=== PATIENT | female | born 1955 | race Caucasian/White ===

== ENCOUNTER → 2019-03-26 10:42 | Outpatient (CLI) | payer OTHER, SELFPAY ==
[2019-03-26 11:32] LABS: Add Manual Diff / Slide Review NO; Basophils Absolute Auto 100 /uL (0-100); Basophils Percent Auto 0.7 % (0-2); Eosinophils Absolute Auto 200 /uL (0-450); Hematocrit 42.5 % (36-46); Lymphocytes Absolute Auto 2100 /uL (1100-4500); Lymphocytes Percent Auto 24.7 % (25-40); Mean Corpuscular HGB Conc 33.1 % (30-36); Mean Corpuscular Hemoglobin 26.6 PG (26-34); Mean Corpuscular Volume 80.3 fL (80-100); Monocytes Absolute Auto 700 /uL (0-900); Monocytes Percent Auto 8.1 % (3-14); Neutrophils Absolute Auto 5500 /uL (1500-7000); Neutrophils Percent Auto 64.5 % (50-75); Platelet Count 305 X10^3/uL (150-400); Red Blood Cell Count 5.29 X10^6/uL (4.0-5.2); Red Cell Distribution Width 14.6 % (11.6-14.8); White Blood Cell Count 8.5 X10^3/uL (4.5-11.0)
[2019-03-26 11:50] LABS: Alanine Aminotransferase 27 IU/L (9-52); Albumin 4.1 g/dL (3.5-5.0); Albumin Globulin Ratio 1.2 (1.0-2.8); Alkaline Phosphatase 60 U/L (38-126); Aspartate Aminotransferase 25 IU/L (14-36); Bilirubin Total 0.4 mg/dL (0.2-1.3); Blood Urea Nitrogen 12 mg/dL (7-17); Calcium 9.1 mg/dL (8.4-10.2); Carbon Dioxide 30 mmol/L (22-32); Chloride 101 mmol/L (98-107); Cholesterol 165 mg/dL (140-199); Estimated Glomerular Filt Rate > 60.0 mL/min (>60); Globulin 3.5 g/dL (1.7-4.1); Glucose 132 mg/dL (80-110); HDL Cholesterol 52 mg/dL (40-60); HEMOLYSIS < 15 (0-50); LDL Cholesterol Calculated 96 mg/dL (<100); Potassium 3.9 mmol/L (3.4-5.1); Sodium 141 mmol/L (137-145); Total Protein 7.6 g/dL (6.3-8.2); Triglycerides 85 mg/dL (35-150)
[2019-03-26 12:18] LABS: Thyroid Stimulating Hormone 1.92 uIU/mL (0.47-4.68)
[2019-03-27 12:31] LABS: Hemoglobin A1C% w Est Avg Glu 6.7 % (4.0-6.0)
== END ==
PROVIDERS: PCP Family Medicine; Visit Provider Family Medicine
DX: E03.9 Hypothyroidism, unspecified (principal); I10 Essential (primary) hypertension; Z13.220 Encounter for screening for lipoid disorders; R73.09 Other abnormal glucose
CPT/HCPCS: 36415; 80053; 80061; 83036; 84443; 85025

== ENCOUNTER → 2019-04-03 11:29 | Outpatient (CLI) | payer OTHER, SELFPAY ==
--- NOTE | 2019-04-03 11:32 | DI.RAD.S_ITS ---
PROCEDURE: XR KNEE RT 3V INDICATIONS: knee pain TECHNIQUE: 3 views of the knee were acquired. COMPARISON: [facility], , KNEE 3V RIGHT, 02/08/2016, 13:17. FINDINGS: Bones: No fractures or dislocations. No suspicious bony lesions. Moderate to severe narrowing of the medial joint space. Scattered degenerative subchondral sclerosis and spurring. Mild narrowing of the patellofemoral joint space Soft tissues: No joint effusion. No suspicious soft tissue calcifications. IMPRESSION: [id number] right knee joint degeneration, unchanged Dictated by: Jerod Ochoa M.D. on 04/03/2019 at 13:56 Approved by: Jerod Ochoa M.D. on 04/03/2019 at 13:57
--- NOTE | 2019-04-03 11:32 | DI.RAD.S_ITS ---
PROCEDURE: XR KNEE LT 3V INDICATIONS: knee pain TECHNIQUE: 3 views of the knee were acquired. COMPARISON: [facility], , KNEE 3V RIGHT, 02/08/2016, 13:17. FINDINGS: Bones: No fractures or dislocations. No suspicious bony lesions. Moderate narrowing of the medial joint space. Scattered degenerative subchondral sclerosis and spurring. Soft tissues: No joint effusion. No suspicious soft tissue calcifications. IMPRESSION: Moderate left knee joint degeneration Dictated by: Jerod Ochoa M.D. on 04/03/2019 at 13:55 Approved by: Jerod Ochoa M.D. on 04/03/2019 at 13:56
== END ==
PROVIDERS: PCP Family Medicine; Visit Provider Family Medicine
DX: M25.562 Pain in left knee (principal); M25.561 Pain in right knee; M17.0 Bilateral primary osteoarthritis of knee
CPT/HCPCS: 73562

== ENCOUNTER 2019-05-21 07:30 | Outpatient (RCR) | payer OTHER, SELFPAY ==
--- NOTE | 2019-04-30 13:55 | PT.OIE ---
Current Diagnoses Pain in right knee (04/30/19) Pain in left knee (04/30/19) Past Medical History (Last Reviewed 03/07/18 @ 09:03 by Domitila Radford LPN) Acute exacerbation of COPD with asthma (Chronic) Asthma exacerbation (Chronic) Depression (Chronic 06/03/14) Essential hypertension (Chronic) Hypothyroidism (Chronic 06/03/14) Metabolic syndrome (Chronic 06/03/14) Obesity (Chronic 06/03/14) Past Surgical History (Last Reviewed 03/07/18 @ 09:03 by Domitila Radford LPN) S/P total abdominal hysterectomy and bilateral salpingo-oophorectomy (Resolved) Status post delivery (Resolved) Status post cholecystectomy (Resolved) Status post exploratory laparotomy (Resolved) Status post tonsillectomy and adenoidectomy (Resolved) Visit Care Team Role Provider Type Weston Michelle MD Attending Provider Physician Primary Care Provider Specialty: [facility] Address: [address] [place] [address] Email: [email or web address] Physical Therapy Initial Evaluation PT-OP-A Visit Information Start: 04/30/19 07:38 Freq: Status: Active Protocol: Document 04/30/19 08:15 AMB (Rec: 04/30/19 12:01 AMB [email or web address]) Out-Patient Physical Therapy Visit Information Visit Information Visit Type Initial Evaluation Visit Start Time 08:15 Visit Stop Time 09:00 Total Visit Minutes 45 Visit Number 1 PT-OP-B Current Condition Start: 04/30/19 07:38 Freq: Status: Active Protocol: Document 04/30/19 08:15 AMB (Rec: 05/01/19 13:50 AMB [email or web address]) Current Condition History of Current Condition Onset Date 6 months Current Complaints L>R knee pain History of Current Condition Mavis was diagnosed with rheumatoid arthritis in the . She has had knee pain on and off, with a meniscectomy on the right around 2010. 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 She finds it difficult to walk around at this point, has difficulty riding her bike, doing housework, and stairs are especially painful. Treatment Goals Patient/Caregiver Goals Be able to walk, stand, exercise without knee pain Personal Factors Other Personal Factors That May Effect History of back pain with mild Therapy/Recovery L foot neuropathy per pt. COPD. PT-OP-C Subjective Start: 04/30/19 07:38 Freq: Status: Active Protocol: Document 04/30/19 08:15 AMB (Rec: 05/01/19 13:50 AMB [email or web address]) Patient Questionnaires Lower Extremity Functional Scale LEFS Score 28 LEFS Impairment 60 to 79% Impaired (Score 17- 31) OP-PT Pain Assessment Location Bilateral Knee Pain Location Details bilateral joint line Intensity 6 Scale Used Numeric (1 - 10) PT-OP-G Mobility & Gait Start: 04/30/19 07:38 Freq: Status: Active Protocol: Document 04/30/19 08:15 AMB (Rec: 05/01/19 13:50 AMB [email or web address]) OP Gait Assessment Comments Gait Comments Pt ambulates without assistive device, but with definite antalgic gait with reduced push off, and increased lateral trunk sway rather than rotation. PT-OP-J Posture/Palpation/Skin Start: 04/30/19 07:38 Freq: Status: Active Protocol: Document 04/30/19 08:15 AMB (Rec: 05/01/19 13:50 AMB [email or web address]) Palpation Assessment Location One Palpation Location L knee Palpation Findings Tenderness Palpation Details Tenderness at joint line bilaterally, tenderness over patella, mild tenderness at popliteal fosa PT-OP-K Range of Motion Start: 04/30/19 07:38 Freq: Status: Active Protocol: Document 04/30/19 08:15 AMB (Rec: 05/01/19 13:50 AMB [email or web address]) Knee Goniometric Range of Motion Knee Right Flexion Active (degrees) 100 Extension Active (degrees) 0 Left Flexion Active (degrees) 100 Extension Active (degrees) 5 PT-OP-L Special Tests Start: 04/30/19 07:38 Freq: Status: Active Protocol: Document 04/30/19 08:15 AMB (Rec: 05/01/19 13:50 AMB [email or web address]) Special Tests Knee Special Tests Patellar Grind Test Test Results positive L>R PT-OP-M Strength Start: 04/30/19 07:38 Freq: Status: Active Protocol: Document 04/30/19 08:15 AMB (Rec: 05/01/19 13:50 AMB [email or web address]) Hip Strength Hip Manual Muscle Testing Right Flexion (L2) 4+ Good+ Extension (S1) 4+ Good+ Abduction 4+ Good+ Left Flexion (L2) 4 Good Extension (S1) 4+ Good+ Abduction 4+ Good+ Knee Strength Knee Manual Muscle Testing Right Flexion (S2) 5 Normal Extension (L3) 4 Good Left Flexion (S2) 5 Normal Extension (L3) 4- Good- Comments knee extension painful PT-OP-Q Treatments Start: 04/30/19 07:38 Freq: Status: Active Protocol: Document 04/30/19 08:15 AMB (Rec: 05/01/19 13:50 AMB [email or web address]) Therapeutic Exercises Supine Exercises 1 Supine Exercise Name wall squat Reps/Minutes 5 Comments very small Standing Exercises 1 Standing Exercise Name hip flexor stretch Reps/Minutes 30x2 PT-OP-T Assessment and Plan Start: 04/30/19 07:38 Freq: Status: Active Protocol: Document 04/30/19 08:15 AMB (Rec: 05/01/19 13:50 AMB [email or web address]) Physical Therapy Assessment Rehab Potential Rehabilitation Potential Good Evaluation Complexity Number of Personal Factors/Comorbidities 1-2 Clinical Presentation at Evaluation Stable Impairments Impairments Balance,Functional Activities, Functional Mobility,Gait,Pain, ROM,Sensation,Strength Goals Three Impairment Gait Short Term Goal (STG) Mavis will ambulate over smooth surfaces for 5 minutes without an increase in baseline knee pain. STG Duration 4 weeks Group Home Goal (LTG) Mavis will ascend and descend 1 flight of stairs without an increase in her baseline knee pain. LTG Duration 6 weeks Two Impairment Strength Short Term Goal (STG) Mavis will be independent with a HEP to improve her LE strength. STG Duration 4 weeks [employer] Inside Goal (LTG) Mavis will improve her LE strength so that she can perform a partial squat without an increase in baseline knee pain. LTG Duration 6 weeks One Impairment ROM Short Term Goal (STG) Mavis will improve her knee flexion to 110 degrees bilaterally. STG Duration 4 weeks Group Home Goal (LTG) Mavis will improve her knee extension to neutral bilaterally. LTG Duration 8 weeks Assessment Summary Assessment Mavis attends physical therapy with an acute exacerbation of chronic bilateral knee pain. Her range of motion is quite limited, as is her function in regards to walking, stairs, squatting. She will benefit from PT to improve her ROM and give her pain management strategies, and improver her gait and body mechanics. Given the chronic nature of her RA, her BMI of 52.4, and COPD, improvement may be slow. Physical Therapy Plan Frequency and Duration Frequency of Treatment 2x/Week Duration of Treatment 6 weeks Plan of Care Start Date 04/30/19 Plan of Care End Date 06/11/19 Therapeutic Interventions Therapeutic Interventions Aquatic Therapy,Gait Training, Home Exercise Program,Manual Therapy,Neuromuscular Re- education,Self-Care/Home Management,Therapeutic Activities,Therapeutic Exercises Modalities Cold Pack/Ice Massage,Electric Stimulation,Hot Packs, Ultrasound Next Visit Focus/Plan Next Note Type Treatment Note Next Visit Plan Progress ROM and strengthening , likely slowly due to pt deconditioning and pain
--- NOTE | 2019-05-07 11:44 | PT.OTN ---
Current Diagnoses Pain in right knee (05/07/19) Pain in left knee (05/07/19) Physical Therapy Treatment Note PT-OP-A Visit Information Start: 04/30/19 07:38 Freq: Status: Active Protocol: Document 05/07/19 10:30 AMB (Rec: 05/07/19 11:15 AMB [id number]) Out-Patient Physical Therapy Visit Information Visit Information Visit Type Treatment Note Visit Start Time 10:30 Visit Stop Time 11:15 Total Visit Minutes 45 Visit Number 2 PT-OP-B Current Condition Start: 04/30/19 07:38 Freq: Status: Active Protocol: Document 04/30/19 08:15 AMB (Rec: 05/01/19 13:50 AMB [email or web address]) Current Condition History of Current Condition Onset Date 6 months Current Complaints L>R knee pain History of Current Condition Mavis was diagnosed with rheumatoid arthritis in the . She has had knee pain on and off, with a meniscectomy on the right around 2010. 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 She finds it difficult to walk around at this point, has difficulty riding her bike, doing housework, and stairs are especially painful. Treatment Goals Patient/Caregiver Goals Be able to walk, stand, exercise without knee pain Personal Factors Other Personal Factors That May Effect History of back pain with mild Therapy/Recovery L foot neuropathy per pt. COPD. PT-OP-C Subjective Start: 04/30/19 07:38 Freq: Status: Active Protocol: Document 05/07/19 10:30 AMB (Rec: 05/07/19 11:44 AMB [email or web address]) OP-PT Subjective Patient Comments Patient Comments Pt having difficulty and pain with HEP. PT-OP-G Mobility & Gait Start: 04/30/19 07:38 Freq: Status: Active Protocol: Document 04/30/19 08:15 AMB (Rec: 05/01/19 13:50 AMB [email or web address]) OP Gait Assessment Comments Gait Comments Pt ambulates without assistive device, but with definite antalgic gait with reduced push off, and increased lateral trunk sway rather than rotation. PT-OP-J Posture/Palpation/Skin Start: 04/30/19 07:38 Freq: Status: Active Protocol: Document 04/30/19 08:15 AMB (Rec: 05/01/19 13:50 AMB [email or web address]) Palpation Assessment Location One Palpation Location L knee Palpation Findings Tenderness Palpation Details Tenderness at joint line bilaterally, tenderness over patella, mild tenderness at popliteal fosa PT-OP-K Range of Motion Start: 04/30/19 07:38 Freq: Status: Active Protocol: Document 04/30/19 08:15 AMB (Rec: 05/01/19 13:50 AMB [email or web address]) Knee Goniometric Range of Motion Knee Right Flexion Active (degrees) 100 Extension Active (degrees) 0 Left Flexion Active (degrees) 100 Extension Active (degrees) 5 PT-OP-L Special Tests Start: 04/30/19 07:38 Freq: Status: Active Protocol: Document 04/30/19 08:15 AMB (Rec: 05/01/19 13:50 AMB [email or web address]) Special Tests Knee Special Tests Patellar Grind Test Test Results positive L>R PT-OP-M Strength Start: 04/30/19 07:38 Freq: Status: Active Protocol: Document 04/30/19 08:15 AMB (Rec: 05/01/19 13:50 AMB [email or web address]) Hip Strength Hip Manual Muscle Testing Right Flexion (L2) 4+ Good+ Extension (S1) 4+ Good+ Abduction 4+ Good+ Left Flexion (L2) 4 Good Extension (S1) 4+ Good+ Abduction 4+ Good+ Knee Strength Knee Manual Muscle Testing Right Flexion (S2) 5 Normal Extension (L3) 4 Good Left Flexion (S2) 5 Normal Extension (L3) 4- Good- Comments knee extension painful PT-OP-Q Treatments Start: 04/30/19 07:38 Freq: Status: Active Protocol: Document 05/07/19 10:30 AMB (Rec: 05/07/19 11:44 AMB [email or web address]) Cardio Equipment Recumbent Elliptical (Biodex) Duration (Minutes) 7 Resistance 4 Seat Position 13 Gym Equipment Shuttle Recovery Bilateral Squats Resistance 50# Reps/Time 3x12 Therapeutic Exercises Standing Exercises 4 Standing Exercise Name resisted walking at rail Resistance yellow loop Reps/Minutes 2 laps each Comments fwd, sidestepping 3 Standing Exercise Name t band hip extension, then knee flexion Resistance #3 t band Comments tried abduction but too painful 2 Standing Exercise Name calf stretch on MIKE Reps/Minutes 30x2 1 Standing Exercise Name hip flexor stretch Reps/Minutes 30x2 Comments with UE support PT-OP-T Assessment and Plan Start: 04/30/19 07:38 Freq: Status: Active Protocol: Document 05/07/19 10:30 AMB (Rec: 05/07/19 11:44 AMB [email or web address]) Physical Therapy Assessment Assessment Summary Assessment Mavis tolerated PT well, but did need to redo HEP as supine hip flexor stretch was causing cramping, and wall squats no matter how small were creating pain in the left knee. Physical Therapy Plan Next Visit Focus/Plan Next Note Type Treatment Note Next Visit Plan Progress ROM and strengthening , slowly due to pt deconditioning and pain
--- NOTE | 2019-05-21 08:26 | PT.OTN ---
Current Diagnoses Pain in right knee (05/21/19) Pain in left knee (05/21/19) Physical Therapy Treatment Note PT-OP-A Visit Information Start: 04/30/19 07:38 Freq: Status: Active Protocol: Document 05/21/19 07:30 AMB (Rec: 05/21/19 08:26 AMB [id number]) Out-Patient Physical Therapy Visit Information Visit Information Visit Type Treatment Note Visit Start Time 07:30 Visit Stop Time 08:15 Total Visit Minutes 45 Visit Number 3 PT-OP-B Current Condition Start: 04/30/19 07:38 Freq: Status: Active Protocol: Document 04/30/19 08:15 AMB (Rec: 05/01/19 13:50 AMB [email or web address]) Current Condition History of Current Condition Onset Date 6 months Current Complaints L>R knee pain History of Current Condition Mavis was diagnosed with rheumatoid arthritis in the . She has had knee pain on and off, with a meniscectomy on the right around 2010. 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 She finds it difficult to walk around at this point, has difficulty riding her bike, doing housework, and stairs are especially painful. Treatment Goals Patient/Caregiver Goals Be able to walk, stand, exercise without knee pain Personal Factors Other Personal Factors That May Effect History of back pain with mild Therapy/Recovery L foot neuropathy per pt. COPD. PT-OP-C Subjective Start: 04/30/19 07:38 Freq: Status: Active Protocol: Document 05/21/19 07:30 AMB (Rec: 05/21/19 08:26 AMB [id number]) OP-PT Subjective Patient Comments Patient Comments Pt has been sick for the last couple weeks with a stomach bug. Legs felt much better when not working. PT-OP-G Mobility & Gait Start: 04/30/19 07:38 Freq: Status: Active Protocol: Document 04/30/19 08:15 AMB (Rec: 05/01/19 13:50 AMB [email or web address]) OP Gait Assessment Comments Gait Comments Pt ambulates without assistive device, but with definite antalgic gait with reduced push off, and increased lateral trunk sway rather than rotation. PT-OP-J Posture/Palpation/Skin Start: 04/30/19 07:38 Freq: Status: Active Protocol: Document 04/30/19 08:15 AMB (Rec: 05/01/19 13:50 AMB [email or web address]) Palpation Assessment Location One Palpation Location L knee Palpation Findings Tenderness Palpation Details Tenderness at joint line bilaterally, tenderness over patella, mild tenderness at popliteal fosa PT-OP-K Range of Motion Start: 04/30/19 07:38 Freq: Status: Active Protocol: Document 04/30/19 08:15 AMB (Rec: 05/01/19 13:50 AMB [email or web address]) Knee Goniometric Range of Motion Knee Right Flexion Active (degrees) 100 Extension Active (degrees) 0 Left Flexion Active (degrees) 100 Extension Active (degrees) 5 PT-OP-L Special Tests Start: 04/30/19 07:38 Freq: Status: Active Protocol: Document 04/30/19 08:15 AMB (Rec: 05/01/19 13:50 AMB [email or web address]) Special Tests Knee Special Tests Patellar Grind Test Test Results positive L>R PT-OP-M Strength Start: 04/30/19 07:38 Freq: Status: Active Protocol: Document 04/30/19 08:15 AMB (Rec: 05/01/19 13:50 AMB [email or web address]) Hip Strength Hip Manual Muscle Testing Right Flexion (L2) 4+ Good+ Extension (S1) 4+ Good+ Abduction 4+ Good+ Left Flexion (L2) 4 Good Extension (S1) 4+ Good+ Abduction 4+ Good+ Knee Strength Knee Manual Muscle Testing Right Flexion (S2) 5 Normal Extension (L3) 4 Good Left Flexion (S2) 5 Normal Extension (L3) 4- Good- Comments knee extension painful PT-OP-Q Treatments Start: 04/30/19 07:38 Freq: Status: Active Protocol: Document 05/21/19 07:30 AMB (Rec: 05/21/19 08:26 AMB [id number]) Cardio Equipment Recumbent Elliptical (Biodex) Duration (Minutes) 7 Resistance 4 Seat Position 13 Gym Equipment Shuttle Recovery Bilateral Squats Resistance 50# Reps/Time 3x12 Therapeutic Exercises Supine Exercises 4 Supine Exercise Name supine march Reps/Minutes 2x10 3 Supine Exercise Name posterior pelvic tilt Reps/Minutes 2x10 2 Supine Exercise Name hip abd with #4 band Reps/Minutes 2x10 Comments hooklying Standing Exercises 4 Standing Exercise Name resisted walking at rail Resistance yellow loop Reps/Minutes 2 laps each Comments fwd, sidestepping 3 Standing Exercise Name t band hip extension, then knee flexion Resistance #3 t band Comments tried abduction but too painful 2 Standing Exercise Name calf stretch on MIKE Reps/Minutes 30x2 1 Standing Exercise Name hip flexor stretch Reps/Minutes 30x2 Comments with UE support PT-OP-T Assessment and Plan Start: 04/30/19 07:38 Freq: Status: Active Protocol: Document 05/21/19 07:30 AMB (Rec: 05/21/19 08:26 AMB [id number]) Physical Therapy Assessment Assessment Summary Assessment Mavis would have a difficult time with supine exercises at home but could consider them at work, she does not feel like her bed is firm enough and can't get to the floor. Overall pt continues to have pain in her knees, but can feel muscles working with exercise. Physical Therapy Plan Next Visit Focus/Plan Next Note Type Treatment Note Next Visit Plan Progress ROM and strengthening , slowly due to pt deconditioning and pain
--- NOTE | 2019-06-04 10:59 | PT-OP ANOTE ---
Pt no showed her last appointment scheduled for 06/04, left voicemail asking her to call back and reschedule, and that if we did not hear anything by 06/11 we would discharge her.
--- NOTE | 2019-06-27 09:07 | PT.OPDS ---
Current Diagnoses Pain in right knee (05/21/19) Pain in left knee (05/21/19) Visit Care Team Role Provider Type Weston Michelle MD Attending Provider Physician Primary Care Provider Specialty: Family Practice Address: [address] [place] [address], [facility] Email: [email or web address] Visit Number Visit Number 3 Discharge Summary PT-OP-B Current Condition Start: 04/30/19 07:38 Freq: Status: Active Protocol: Document 04/30/19 08:15 AMB (Rec: 05/01/19 13:50 AMB [email or web address]) Current Condition History of Current Condition Onset Date 6 months Current Complaints L>R knee pain History of Current Condition Mavis was diagnosed with rheumatoid arthritis in the . She has had knee pain on and off, with a meniscectomy on the right around 2010. 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 She finds it difficult to walk around at this point, has difficulty riding her bike, doing housework, and stairs are especially painful. Treatment Goals Patient/Caregiver Goals Be able to walk, stand, exercise without knee pain Personal Factors Other Personal Factors That May Effect History of back pain with mild Therapy/Recovery L foot neuropathy per pt. COPD. PT-OP-C Subjective Start: 04/30/19 07:38 Freq: Status: Active Protocol: Document 05/21/19 07:30 AMB (Rec: 05/21/19 08:26 AMB [id number]) OP-PT Subjective Patient Comments Patient Comments Pt has been sick for the last couple weeks with a stomach bug. Legs felt much better when not working. PT-OP-G Mobility & Gait Start: 04/30/19 07:38 Freq: Status: Active Protocol: Document 04/30/19 08:15 AMB (Rec: 05/01/19 13:50 AMB [email or web address]) OP Gait Assessment Comments Gait Comments Pt ambulates without assistive device, but with definite antalgic gait with reduced push off, and increased lateral trunk sway rather than rotation. PT-OP-J Posture/Palpation/Skin Start: 04/30/19 07:38 Freq: Status: Active Protocol: Document 04/30/19 08:15 AMB (Rec: 05/01/19 13:50 AMB [email or web address]) Palpation Assessment Location One Palpation Location L knee Palpation Findings Tenderness Palpation Details Tenderness at joint line bilaterally, tenderness over patella, mild tenderness at popliteal fosa PT-OP-K Range of Motion Start: 04/30/19 07:38 Freq: Status: Active Protocol: Document 04/30/19 08:15 AMB (Rec: 05/01/19 13:50 AMB [email or web address]) Knee Goniometric Range of Motion Knee Right Flexion Active (degrees) 100 Extension Active (degrees) 0 Left Flexion Active (degrees) 100 Extension Active (degrees) 5 PT-OP-L Special Tests Start: 04/30/19 07:38 Freq: Status: Active Protocol: Document 04/30/19 08:15 AMB (Rec: 05/01/19 13:50 AMB [email or web address]) Special Tests Knee Special Tests Patellar Grind Test Test Results positive L>R PT-OP-M Strength Start: 04/30/19 07:38 Freq: Status: Active Protocol: Document 04/30/19 08:15 AMB (Rec: 05/01/19 13:50 AMB [email or web address]) Hip Strength Hip Manual Muscle Testing Right Flexion (L2) 4+ Good+ Extension (S1) 4+ Good+ Abduction 4+ Good+ Left Flexion (L2) 4 Good Extension (S1) 4+ Good+ Abduction 4+ Good+ Knee Strength Knee Manual Muscle Testing Right Flexion (S2) 5 Normal Extension (L3) 4 Good Left Flexion (S2) 5 Normal Extension (L3) 4- Good- Comments knee extension painful PT-OP-T Assessment and Plan Start: 04/30/19 07:38 Freq: Status: Active Protocol: Document 06/27/19 09:02 AMB (Rec: 06/27/19 09:06 AMB [email or web address]) Physical Therapy Assessment Goals Three Impairment Gait Short Term Goal (STG) Mavis will ambulate over smooth surfaces for 5 minutes without an increase in baseline knee pain. STG Duration 4 weeks Motorboat Mechanic Inboard/Outboard Goal (LTG) Mavis will ascend and descend 1 flight of stairs without an increase in her baseline knee pain. LTG Duration 6 weeks Two Impairment Strength Short Term Goal (STG) Mavis will be independent with a HEP to improve her LE strength. STG Duration 4 weeks Motorboat Mechanic Inboard/Outboard Goal (LTG) Mavis will improve her LE strength so that she can perform a partial squat without an increase in baseline knee pain. LTG Duration 6 weeks One Impairment ROM Short Term Goal (STG) Mavis will improve her knee flexion to 110 degrees bilaterally. STG Duration 4 weeks Motorboat Mechanic Inboard/Outboard Goal (LTG) Mavis will improve her knee extension to neutral bilaterally. LTG Duration 8 weeks Assessment Summary Assessment Mavis was instructed in a HEP for LE strengthening. She continued to have pain with work, and is looking into a knee replacement. She no showed her last appointment and has not called back to reschedule, therefore she is discharged at this time. At this point her pain has continued but she was encouraged in a gentle HEP as her overall lower extremity strength continues to be weak. Physical Therapy Plan Discharge Physical Therapy Discharge Reasons No Longer Attending PT
== END 2019-07-01 11:32 ==
LOC: PHYS 07:30
PROVIDERS: PCP Family Medicine; Visit Provider Family Medicine
DX: M25.561 Pain in right knee (principal); M25.562 Pain in left knee
CPT/HCPCS: 97110; 97161

== ENCOUNTER 2019-07-26 16:01 | Emergency (ER) | payer OTHER, SELFPAY ==
[2019-07-26 16:12] VITALS: BP 156/65; PULSE 89; RESP 30; TEMP 36.8; O2SAT 97; BMI 49.9
[2019-07-26 16:18] VITALS: RESP 20; O2SAT 95
[2019-07-26] MEDS: ALBUTEROL/IPRATROPIUM 3 ML AMPUL INH (16:18)
[2019-07-26 16:30] VITALS: BP 145/121; PULSE 92; RESP 18; O2SAT 100
[2019-07-26 17:00] VITALS: BP 152/74; PULSE 97; RESP 18; O2SAT 98
[2019-07-26] MEDS: methylPREDNISolone 125 MG/2 ML VIAL IV (17:21)
[2019-07-26] MEDS: BENZONATATE 100 MG CAPSULE PO (17:24)
[2019-07-26 17:30] LABS: Add Manual Diff / Slide Review NO; Basophils Absolute Auto 200 /uL (0-100); Basophils Percent Auto 1.2 % (0-2); Eosinophils Absolute Auto 400 /uL (0-450); Eosinophils Percent Auto 2.6 % (2-4); Hematocrit 41.2 % (36-46); Hemoglobin 13.7 g/dL (12.0-16.0); Lymphocytes Absolute Auto 4700 /uL (1100-4500); Lymphocytes Percent Auto 27.4 % (25-40); Mean Corpuscular HGB Conc 33.4 % (30-36); Mean Corpuscular Hemoglobin 26.7 PG (26-34); Monocytes Absolute Auto 1200 /uL (0-900); Monocytes Percent Auto 6.8 % (3-14); Neutrophils Absolute Auto 10700 /uL (1500-7000); Platelet Count 322 X10^3/uL (150-400); Red Blood Cell Count 5.15 X10^6/uL (4.0-5.2); White Blood Cell Count 17.2 X10^3/uL (4.5-11.0)
[2019-07-26 17:44] LABS: Alanine Aminotransferase 34 IU/L (<35); Albumin 4.2 g/dL (3.5-5.0); Albumin Globulin Ratio 1.1 (1.0-2.8); Alkaline Phosphatase 57 U/L (38-126); Aspartate Aminotransferase 35 IU/L (14-36); BUN Creatinine Ratio 14.2 (6-22); Bilirubin Total 0.4 mg/dL (0.2-1.3); Blood Urea Nitrogen 17 mg/dL (7-17); Calcium 9.3 mg/dL (8.4-10.2); Carbon Dioxide 31 mmol/L (22-32); Chloride 98 mmol/L (98-107); Estimated Glomerular Filt Rate 45.5 mL/min (>60); Globulin 3.7 g/dL (1.7-4.1); Glucose 161 mg/dL (80-110); HEMOLYSIS < 15 (0-50); Magnesium 2.1 mg/dL (1.6-2.3); Sodium 138 mmol/L (137-145); Total Protein 7.9 g/dL (6.3-8.2)
[2019-07-26 17:48] LABS: B Type Natriuretic Peptide < 100 (<100)
--- NOTE | 2019-07-26 17:51 | DI.RAD.S_ITS ---
PROCEDURE: XR CHEST 2V INDICATIONS: shortness of breath, with coughing TECHNIQUE: 2 views of the chest were acquired. COMPARISON: [facility], , CHEST 1 VIEW, 07/06/2016, 16:24. FINDINGS: Surgical changes and devices: Cholecystectomy clips. Lungs and pleura: Minimal to mild appearance of patchy opacities are present within the bases and retrocardiac region. Mediastinum: Mediastinal contours are normal. Heart size is enlarged. Bones and chest wall: No suspicious bony abnormalities. Soft tissues appear unremarkable. IMPRESSION: Bibasilar such retrocardiac opacities as above suggestive of pneumonia. Dictated by: Michell Leblanc M.D. on 07/26/2019 at 18:02 Approved by: Michell Leblanc M.D. on 07/26/2019 at 18:03
--- NOTE | 2019-07-26 18:04 | ED_ITS ---
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 The patient has not had to use her inhaler for a long period of time since being placed on QVAR. She has had a persistent cough that has been dry and nonproductive of sputum sometimes it's productive of a mildly green and clear sputum without hemoptysis. She has had a stuffy nose. She has been short of breath. She denies a history of asthma but has a form of reactive airway disease with chronic bronchitis. She states that she has a borderline diabetic with her last A1c being 6.7. She denies a history of congestive heart failure myocardial infarction asthma but has been told she has some mild COPD. She is a former smoker years ago does not vapor drink alcohol use any drugs. She denies any significant chest pain palpitations dizziness nasal drainage or sore throat. She has had no fever chills but has had intermittent sweats and has a mild tussive headache. She denies any skin rash. She has had nausea without vomiting. She has not aspirated. She denies any urinary symptoms. Related Data Home Medications Medication Instructions Recorded Confirmed aspirin 81 mg PO DAILY #0 07/11/11 07/29/19 [bioastin] 1 tab PO Q DAY #0 08/27/12 07/29/19 [calcium citrate] #0 02/08/16 07/29/19 cetirizine 10 mg tablet 10 mg PO DAILY 04/03/19 07/29/19 cholecalciferol (vitamin D3) 25 1,000 unit PO DAILY 04/03/19 07/29/19 mcg (1,000 unit) capsule thiamine HCl (vitamin B1) 50 mg 50 mg PO DAILY 04/03/19 07/29/19 tablet albuterol sulfate [Ventolin HFA] 1 - 2 puff INHALATION Q4H PRN 07/26/19 07/29/19 beclomethasone dipropionate [Qvar 2 inh INHALATION BID 07/26/19 07/29/19 RediHaler] fluoxetine 20 mg PO DAILY 07/26/19 07/29/19 hydroxychloroquine 400 mg PO DAILY 07/26/19 07/29/19 ibuprofen 800 mg PO TID 07/26/19 07/29/19 Previous Rx's Medication Instructions Recorded ketoconazole 1 % shampoo 1 applictn TOP Q3D #125 ml 04/03/19 metformin 500 mg tablet 500 mg PO BID #180 tab 04/03/19 liothyronine 25 mcg tablet 25 mcg PO QDAY #90 tab 04/15/19 clobetasol 0.05 % shampoo 1 applictn TOP .COMPLEX #118 ml 05/07/19 losartan 50 mg tablet 50 mg PO DAILY #90 tab 07/04/19 triamterene 37.5 1 cap PO DAILY #90 cap 07/04/19 mg-hydrochlorothiazide 25 mg capsule albuterol sulfate 2.5 mg INHALATION Q2H PRN #90 ml 07/26/19 benzonatate [Tessalon Perles] 100 mg PO TID PRN #20 cap 07/26/19 ipratropium-albuterol 3 ml INHALATION Q4-6H PRN #90 ml 07/26/19 doxycycline hyclate 100 mg tablet 100 mg PO BID #20 tab 07/29/19 prednisone 20 mg tablet 40 mg PO DAILY #20 tab 07/29/19 Allergies Allergy/AdvReac Type Severity Reaction Status Date / Time codeine [CODEINE] Allergy Unknown Verified 07/29/19 12:01 nitrofurantoin Allergy Unknown Verified 07/29/19 12:01 [NITROFURANTOIN] Penicillins [PENICILLINS] Allergy Unknown Verified 07/29/19 12:01 Review of Systems Review of Systems Narrative: All review of systems were negative except for those mentioned in the history of present illness. Patient History Medical History Acute exacerbation of COPD with asthma (Chronic) Asthma exacerbation (Chronic) Depression (Chronic 06/03/14) Essential hypertension (Chronic) Hypothyroidism (Chronic 06/03/14) Metabolic syndrome (Chronic 06/03/14) Obesity (Chronic 06/03/14) Surgical History S/P total abdominal hysterectomy and bilateral salpingo-oophorectomy (Resolved) Status post delivery (Resolved) Status post cholecystectomy (Resolved) Status post exploratory laparotomy (Resolved) Status post tonsillectomy and adenoidectomy (Resolved) Social History marital status: Smoking Status: Former smoker alcohol intake: never substance use type: does not use Smoking Status: Former smoker Substance Use Type: does not use Exam Narrative Exam Narrative: PHYSICAL EXAM: CONSTITUTIONAL: Awake, Alert, Oriented, Coherent, Cooperative in in mild distress with mild conversational dyspnea.. Does not appear toxic or ill. HEAD: AT/NC EENT: PERRL, FROM of eyes, no discharge, no nystagmus No epistaxis or nasal drainage Oral mucosa is moist and pink, posterior pharynx is without erythema or exudate. NECK: Supple, no obvious JVD, Trachea is midline without stridor, no palpable LN or masses. SPINE: No gross deformity, no palpable tenderness of the cervical, thoracic, lumbar or sacral spine. No CVA tenderness. THORAX: No deformity, retractions, chest wall tenderness, subcutaneous air or crepitice. LUNGS: The patient has muffled breath sounds with diffuse expiratory wheezes anteriorly and posteriorly bilaterally. HEART: Normal heart tones, regular rhythm and rate without murmur. ABDOMEN: Soft, non-tender, normal bowel sounds without guarding, rebound, rigidity or palpable mass . EXTREMITIES: No edema, cyanosis, deformity or tenderness. SKIN: No rash, bruising, petechiae or purpura. NEURO: Awake, alert, oriented, conversive, cranial nerves II-XII are symmetrical and normal, moves all 4 extremities and is ambulatory Initial Vital Signs Initial Vital Signs: Vital Signs Temperature 98.3 F 07/26/19 16:12 Pulse Rate 89 07/26/19 16:12 Respiratory Rate 30 H 07/26/19 16:12 Blood Pressure 156/65 H 07/26/19 16:12 Pulse Oximetry 97 07/26/19 16:12 Course Orders Ordered: Discontinued Medications Albuterol/Ipratropium (Duoneb) 3 ml INH NOW ONE Stop: 07/26/19 16:18 Last Admin: 07/26/19 16:18 Dose: 3 ml Documented by: FELIZ Albuterol/Ipratropium (Duoneb) 3 ml INH NOW ONE Stop: 07/26/19 16:57 Last Admin: 07/26/19 17:25 Dose: Not Given Documented by: RSELFRIDGE Benzonatate (Tessalon Perles) 100 mg PO NOW ONE Stop: 07/26/19 17:21 Last Admin: 07/26/19 17:24 Dose: 100 mg Documented by: SHARANSENSaige Sodium Chloride (Normal Saline 0.9%) 1,000 mls @ 1,000 mls/hr IV BOLUS ONE Stop: 07/26/19 17:55 Last Admin: 07/26/19 17:37 Dose: Not Given Documented by: MEISENB Methylprednisolone (Solu-Medrol 125 Mg Vial) 125 mg IV NOW ONE Stop: 07/26/19 16:57 Last Admin: 07/26/19 17:21 Dose: 125 mg Documented by: SHARANSENSaige Vital Signs Vital signs: Vital Signs - 8 hr 07/26/19 16:12 07/26/19 16:18 07/26/19 16:30 Temperature 98.3 F Pulse Rate 89 92 H Respiratory Rate 30 H 20 18 Blood Pressure 156/65 H Blood Pressure [Left Arm] 145/121 H Pulse Oximetry 97 95 100 07/26/19 17:00 Temperature Pulse Rate 97 H Respiratory Rate 18 Blood Pressure Blood Pressure [Left Arm] 152/74 H Pulse Oximetry 98 MDM - SOB/Dyspnea Lab Data Result diagrams: 07/26/19 17:15 07/26/19 17:15 Labs: Lab Results 07/26/19 07/26/19 07/26/19 Range/Units 17:15 17:15 17:15 WBC 17.2 H (4.5-11.0) X10^3/uL RBC 5.15 (4.0-5.2) X10^6/uL Hgb 13.7 (12.0-16.0) g/dL Hct 41.2 (36-46) % MCV 80.0 (80-100) fL MCH 26.7 (26-34) PG MCHC 33.4 (30-36) % RDW 15.0 H (11.6-14.8) % Plt Count 322 (150-400) X10^3/uL Neut % (Auto) 62.0 (50-75) % Lymph % (Auto) 27.4 (25-40) % [place] % (Auto) 6.8 (3-14) % Eos % (Auto) 2.6 (2-4) % Baso % (Auto) 1.2 (0-2) % Neut # (Auto) 90103 H (1141-6172) /uL Lymph # (Auto) 4700 H (8210-7100) /uL [place] # (Auto) 1200 H (0-900) /uL Eos # (Auto) 400 (0-450) /uL Baso # (Auto) 200 H (0-100) /uL Sodium 138 (137-145) mmol/L Potassium 4.0 (3.4-5.1) mmol/L Chloride 98 (98-107) mmol/L Carbon Dioxide 31 (22-32) mmol/L BUN 17 (7-17) mg/dL Creatinine 1.20 H (0.52-1.04) mg/dL Estimated GFR 45.5 L (>60) mL/min BUN/Creatinine Ratio 14.2 (6-22) Glucose 161 H (80-110) mg/dL Calcium 9.3 (8.4-10.2) mg/dL Magnesium 2.1 (1.6-2.3) mg/dL Total Bilirubin 0.4 (0.2-1.3) mg/dL AST 35 (14-36) IU/L ALT 34 (<35) IU/L Alkaline Phosphatase 57 (38-126) U/L B-Natriuretic Peptide < 100 (<100) Total Protein 7.9 (6.3-8.2) g/dL Albumin 4.2 (3.5-5.0) g/dL Globulin 3.7 (1.7-4.1) g/dL Albumin/Globulin Ratio 1.1 (1.0-2.8) Discharge Plan Departure Patient Disposition: Home Clinical Impression: Expiratory wheezing, Acute bronchitis with chronic obstructive pulmonary disease (COPD) RAD (reactive airway disease) Qualifiers: Asthma severity: moderate Asthma persistence: persistent Asthma complication type: uncomplicated Qualified Code(s): J45.40 - Moderate persistent asthma, uncomplicated Upper respiratory infection Qualifiers: URI type: unspecified viral URI Qualified Code(s): J06.9 - Acute upper respiratory infection, unspecified Bilateral pneumonia Qualifiers: Pneumonia type: due to unspecified organism Lung location: lower lobe of lung Qualified Code(s): J18.9 - Pneumonia, unspecified organism Discharge Date/Time: 07/26/19 18:55 Instructions: DI for Pneumonia -- Adult, DI for Cough -- Adult, DI for Acute Bronchitis, DI for Viral Upper Respiratory Infection -- Adult Activity Restrictions/Additional Instructions: Your chest x-ray reveals that she have bilateral lower lobe pneumonias that are bibasilar. You need to drink 2-3 L of fluid per day to keep herself hydrated. Take the doxycycline as the antibiotic for the treatment of the pneumonia. For the reactive airway disease take prednisone as prescribed. You can use the DuoNeb every 4-6 hours and if he continued to have shortness of breath or difficulty in breathing as well as coughing and wheezing you can use albuterol every 2 to 4 hours in between. You should be seen and re-evaluated by her primary care physician in 48-72 hours. If you develop chest pain worsening shortness of breath you need to return to the emergency department. Prescriptions: New albuterol sulfate 2.5 mg /3 mL (0.083 %) solution for nebulization 2.5 mg INHALATION Q2H PRN (Reason: shortness of breath or wheezing) Qty: 90 RF: 0 ipratropium-albuterol 0.5 mg-3 mg(2.5 mg base)/3 mL solution for nebulization 3 ml INHALATION Q4-6H PRN (Reason: shortness of breath or wheezing) Qty: 90 RF: 0 benzonatate [Tessalon Perles] 100 mg capsule 100 mg PO TID PRN (Reason: cough) Qty: 20 RF: 0 No Action cholecalciferol (vitamin D3) 1,000 unit capsule 1,000 unit PO DAILY RF: 0 thiamine HCl (vitamin B1) 50 mg tablet 50 mg PO DAILY RF: 0 cetirizine [Zyrtec] 10 mg tablet 10 mg PO DAILY RF: 0 metformin 500 mg tablet 500 mg PO BID Qty: 180 RF: 3 ketoconazole 1 % shampoo 1 applictn TOP Q3D Qty: 125 RF: 3 prednisone 20 mg tablet 40 mg PO DAILY Qty: 20 RF: 0 doxycycline hyclate 100 mg tablet 100 mg PO BID Qty: 20 RF: 0 aspirin 81 mg Tablet,Delayed Release (Dr/Ec) 81 mg PO DAILY Qty: 0 RF: 0 [bioastin] 1 tab PO Q DAY Qty: 0 RF: 0 [calcium citrate] Qty: 0 RF: 0 liothyronine [Cytomel] 25 mcg tablet 25 mcg PO QDAY Qty: 90 RF: 3 clobetasol 0.05 % shampoo 1 applictn TOP .COMPLEX Qty: 118 RF: 1 triamterene-hydrochlorothiazid 37.5-25 mg capsule 1 cap PO DAILY Qty: 90 RF: 1 losartan 50 mg tablet 50 mg PO DAILY Qty: 90 RF: 1 Qvar RediHaler 40 mcg/actuation Hfa Aerosol Breath Activated 2 inh INHALATION BID RF: 0 ibuprofen 800 mg tablet 800 mg PO TID RF: 0 hydroxychloroquine 200 mg tablet 400 mg PO DAILY RF: 0 albuterol sulfate [Ventolin HFA] 90 mcg/actuation HFA aerosol inhaler 1 - 2 puff inhalation Q4H PRN (Reason: shortness of breath or wheezing) RF: 0 fluoxetine 20 mg capsule 20 mg PO DAILY RF: 0 Referrals: Weston Michelle MD [Primary Care Provider] -
== END 2019-07-26 18:55 | disposition home or self-care (01) ==
PROVIDERS: Emergency Provider Emergency Medicine; PCP Family Medicine
DX: J44.9 Chronic obstructive pulmonary disease, unspecified (principal); J45.40 Moderate persistent asthma, uncomplicated; J06.9 Acute upper respiratory infection, unspecified; J18.9 Pneumonia, unspecified organism
CPT/HCPCS: 36415; 71046; 80053; 83735; 83880; 85025; 93005; 93010; 94640; 96374; 99285; J2930

== ENCOUNTER → 2019-09-08 14:43 | Outpatient (CLI) | payer OTHER, SELFPAY | PROVIDERS: PCP Family Medicine; Visit Provider Physician Assistant | DX: R30.0 Dysuria (principal) | CPT/HCPCS: 87077; 87086; 87186 ==

== ENCOUNTER → 2019-09-17 10:21 | Outpatient (CLI) | payer OTHER, SELFPAY ==
--- NOTE | 2019-09-17 10:23 | DI.RAD.S_ITS ---
PROCEDURE: XR CHEST 2V INDICATIONS: cough, recent h/o pneumonia TECHNIQUE: 2 views of the chest were acquired. COMPARISON: [facility], CR, XR CHEST 2V, 07/26/2019, 17:47. FINDINGS: Surgical changes and devices: None. Lungs and pleura: Small focal infiltrate, left lung base. No pleural effusions or pneumothorax. Mediastinum: Mediastinal contours are normal. Unchanged cardiomegaly. Bones and chest wall: No suspicious bony abnormalities. Soft tissues appear unremarkable. IMPRESSION: Small focal left basilar pneumonia. Comment: Progress films are recommended until clear. Dictated by: Chidi Miguel M.D. on 09/17/2019 at 11:43 Approved by: Chidi Miguel M.D. on 09/17/2019 at 11:44
[2019-09-17 12:38] LABS: Add Manual Diff / Slide Review NO; Basophils Absolute Auto 100 /uL (0-100); Basophils Percent Auto 0.8 % (0-2); Eosinophils Absolute Auto 400 /uL (0-450); Eosinophils Percent Auto 4.3 % (2-4); Hematocrit 41.8 % (36-46); Hemoglobin 13.9 g/dL (12.0-16.0); Lymphocytes Absolute Auto 2600 /uL (1100-4500); Lymphocytes Percent Auto 25.9 % (25-40); Mean Corpuscular HGB Conc 33.3 % (30-36); Mean Corpuscular Hemoglobin 27.3 PG (26-34); Mean Corpuscular Volume 81.7 fL (80-100); Monocytes Absolute Auto 800 /uL (0-900); Monocytes Percent Auto 8.5 % (3-14); Neutrophils Absolute Auto 6000 /uL (1500-7000); Neutrophils Percent Auto 60.5 % (50-75); Platelet Count 320 X10^3/uL (150-400); Red Blood Cell Count 5.11 X10^6/uL (4.0-5.2); Red Cell Distribution Width 14.9 % (11.6-14.8); White Blood Cell Count 9.9 X10^3/uL (4.5-11.0)
[2019-09-17 12:45] LABS: Hemoglobin A1C% w Est Avg Glu 6.6 % (4.0-6.0)
== END ==
PROVIDERS: PCP Family Medicine; Referring Provider Family Medicine; Visit Provider Family Medicine
DX: J18.9 Pneumonia, unspecified organism (principal); R05 Cough; E11.9 Type 2 diabetes mellitus without complications
CPT/HCPCS: 36415; 71046; 83036; 85025

== ENCOUNTER → 2019-10-28 10:50 | Outpatient (CLI) | payer OTHER, SELFPAY ==
[2019-10-28 13:00] LABS: Add Manual Diff / Slide Review NO; Basophils Absolute Auto 100 /uL (0-100); Basophils Percent Auto 0.8 % (0-2); Eosinophils Absolute Auto 400 /uL (0-450); Hematocrit 43.5 % (36-46); Hemoglobin 14.1 g/dL (12.0-16.0); Lymphocytes Absolute Auto 2900 /uL (1100-4500); Lymphocytes Percent Auto 27.6 % (25-40); Mean Corpuscular HGB Conc 32.5 % (30-36); Mean Corpuscular Hemoglobin 26.7 PG (26-34); Mean Corpuscular Volume 82.2 fL (80-100); Monocytes Absolute Auto 800 /uL (0-900); Neutrophils Absolute Auto 6200 /uL (1500-7000); Neutrophils Percent Auto 59.6 % (50-75); Platelet Count 334 X10^3/uL (150-400); Red Blood Cell Count 5.29 X10^6/uL (4.0-5.2); Red Cell Distribution Width 14.6 % (11.6-14.8); White Blood Cell Count 10.5 X10^3/uL (4.5-11.0)
[2019-10-28 13:11] LABS: Alanine Aminotransferase 27 IU/L (<35); Albumin 4.3 g/dL (3.5-5.0); Albumin Globulin Ratio 1.3 (1.0-2.8); Alkaline Phosphatase 56 U/L (38-126); Aspartate Aminotransferase 27 IU/L (14-36); BUN Creatinine Ratio 25.4 (6-22); Bilirubin Total 0.4 mg/dL (0.2-1.3); Blood Urea Nitrogen 16 mg/dL (7-17); Calcium 9.5 mg/dL (8.4-10.2); Carbon Dioxide 30 mmol/L (22-32); Chloride 99 mmol/L (98-107); Estimated Glomerular Filt Rate > 60.0 mL/min (>60); Globulin 3.4 g/dL (1.7-4.1); Glucose 121 mg/dL (80-110); HEMOLYSIS < 15 (0-50); Potassium 3.9 mmol/L (3.4-5.1); Sodium 138 mmol/L (137-145); Total Protein 7.7 g/dL (6.3-8.2)
[2019-10-28 13:15] LABS: NT-proBNP (BNP-Adult 18+) 135 pg/mL (<125)
== END ==
PROVIDERS: PCP Family Medicine; Referring Provider Family Medicine; Visit Provider Family Medicine
DX: I10 Essential (primary) hypertension (principal); R60.9 Edema, unspecified
CPT/HCPCS: 36415; 80053; 83880; 85025

== ENCOUNTER → 2019-11-01 08:06 | Outpatient (CLI) | payer OTHER, SELFPAY ==
--- NOTE | 2019-11-01 08:08 | DI.ECHO.S_ITS ---
[facility]---------+ [facility] +---------+ : : [address] : : : : [id number] : : : : Phone: [phone] Echocardiogram Report + + :Name: JUNAID LANCASTER Study Date: 11/01/2019 Height: 65 in : :[facility] Weight: 323 lb : : Gender: Female BSA: 2.4 m2 : :: 1955 Age: 64 yrs BP: 126/74 mmHg: :Reason For Study: EDEMA, SOB : :Ordering Physician: Dr. Ontiveros : :Viviana Performed By: Joann Arteaga : + + Interpretation Summary Technically difficult study. Mild concentric left ventricular hypertrophy with ejection fraction 60-65%. Mild biatrial enlargement. No valvular abnormality. Moderate pulmonary hypertension. The right ventricular systolic pressure is estimated to be at least 47 mmHg based on an estimated right atrial pressure of 8 mm Hg. Procedure: A two-dimensional transthoracic echocardiogram with color flow and Doppler was performed. The study quality was technically difficult. A contrast injection of Definity was performed to improve assessment of LV function. There is no prior echocardiogram noted for this patient. The patient was in normal sinus rhythm during the exam. The heart rate ranged between 84- 114 bpm during the study. Left Ventricle: The left ventricle is normal in size. There is mild concentric left ventricular hypertrophy. There is no ventricular septal defect visualized. The ejection fraction is estimated to be 60-65%. There are no focal wall motion abnormalities. Diastolic parameters suggest probable normal left ventricular diastolic function and normal filling pressures. Right Ventricle: The right ventricle is normal in size and function. Atria: There is mild biatrial enlargement. Mitral Valve: The mitral valve is normal in structure and function. There is trace mitral regurgitation. Aortic Valve: The aortic valve is not well visualized. The aortic valve is grossly normal. No aortic regurgitation is present. Tricuspid Valve: The tricuspid valve is normal in structure and function. There is trace tricuspid regurgitation. There is moderate pulmonary hypertension. The right ventricular systolic pressure is estimated to be at least 47 mmHg based on an estimated right atrial pressure of 8 mm Hg. Pulmonic Valve: The pulmonic valve is not well visualized. Great Vessels: The aortic root is normal size. The ascending aorta is at the upper limits of normal in size. The aortic arch is normal in size. The IVC is of normal diameter and collapses less than 50% with a sniff. This suggests a right atrial pressure of 8 mm Hg. Pericardium/ Pleura There is no pericardial effusion. MMode/2D Measurements & Calculations LVIDd: 4.8 cm LVOT diam: 2.1 cm LVIDs: 2.9 cm Ao root diam: 3.1 cm FS: 39.8 % asc Aorta Diam: 3.4 cm IVSd: 1.2 cm Ao Arch Diam (Prox Trans): 2.5 cm LVPWd: 1.1 cm LV fisher. diameter/BSA (cm/m^2): 2.0 LV sys. diameter/BSA (cm/m^2): 1.2 LA A2 area: 23.3 cm2 RA long axis: 4.6 cm LA A4 area: 22.8 cm2 RA area: 19.1 cm2 LA length (vol): 6.0 cm RA vol: 68.0 ml LA vol: 75.9 ml RA : 28.0 ml/m2 LA vol index: 31.3 ml/m2 RVD1 (basal): 4.0 cm RVD2 (mid): 3.2 cm TAPSE: 2.6 cm Doppler Measurements & Calculations Ao V2 max: 188.4 cm/sec LVOT Max Salvador: 135.4 cm/sec Ao V2 mean: 130.7 cm/sec LV V1 max P.4 mmHg Ao max P.2 mmHg LV V1 VTI: 27.7 cm Ao mean P.9 mmHg JEAN CARLOS(I,D): 2.4 cm2 Ao V2 VTI: 39.9 cm JEAN CARLOS(V,D): 2.5 cm2 sev ratio: 0.69 JEAN CARLOS indexed to BSA (cm^2/m^2): 1.0 MV E max salvador: 111.9 cm/sec TR max salvador: 310.5 cm/sec MV A max salvador: 123.0 cm/sec TR max P.6 mmHg MV E/A: 0.91 PA V2 max: 124.7 cm/sec Med Peak E' Salvador: 9.0 cm/sec PA V2 mean: 82.0 cm/sec E/E' med: 12.5 PA mean P.2 mmHg Lat Peak E' Salvador: 12.1 cm/sec PA Accel Time: 0.12 sec E/E' lat: 9.3 E/e' average: 10.9 MV dec time: 0.20 sec MV P1/2t: 57.9 msec MV P1/2t max salvador: 112.4 cm/sec SV(LVOT): 97.5 ml MVA(P1/2t): 3.8 cm2 Electronically signed by: Alicia Lovett on Reading Physician:11/01/2019 12:45 PM
== END ==
PROVIDERS: PCP Family Medicine; Referring Provider Family Medicine; Visit Provider Family Medicine
DX: I27.20 Pulmonary hypertension, unspecified (principal); R60.9 Edema, unspecified; J44.9 Chronic obstructive pulmonary disease, unspecified; R06.02 Shortness of breath
CPT/HCPCS: 93306; Q9957

== ENCOUNTER → 2020-05-13 13:43 | Outpatient (CLI) | payer OTHER, SELFPAY ==
[2020-05-13 15:36] LABS: COVID19 -Nasal RAPID Negative (Negative)
== END ==
PROVIDERS: PCP Family Medicine; Visit Provider Physician Assistant
DX: Z11.59 Encounter for screening for other viral diseases (principal)
CPT/HCPCS: 87635

== ENCOUNTER → 2020-06-19 10:04 | Outpatient (CLI) | payer OTHER, SELFPAY ==
--- NOTE | 2020-06-19 10:06 | DI.MG.S_ITS ---
BILATERAL DIGITAL SCREENING MAMMOGRAM 3D/2D WITH CAD: 06/19/2020 CLINICAL: Routine screening. Family history of breast cancer. Comparison is made to exams dated: 08/31/2012 mammogram, 06/08/2011 mammogram, and 06/04/2010 mammogram - [facility]. The tissue of both breasts is predominantly fatty. Current study was also evaluated with a Computer Aided Detection (CAD) system. No significant masses, calcifications, or other findings are seen in either breast. There has been no significant interval change. IMPRESSION: NEGATIVE There is no mammographic evidence of malignancy. A 1 year screening mammogram is recommended. This exam was interpreted at Station ID: [id number]. NOTE: For mammograms, a report in lay terms will be sent to the patient. Approximately 15% of breast malignancies will not be visualized mammographically. In the management of a palpable breast mass, a negative mammogram must not discourage biopsy of a clinically suspicious lesion. Electronically Signed By: Phuc huntley/harish:06/19/2020 12:30:43 letter sent: Normal Exam ACR BI-RADS Category 1: Negative 3341F
[2020-06-19 11:17] LABS: Add Manual Diff / Slide Review NO; Basophils Absolute Auto 100 /uL (0-100); Basophils Percent Auto 0.9 % (0-2); Eosinophils Absolute Auto 300 /uL (0-450); Eosinophils Percent Auto 2.9 % (2-4); Hematocrit 41.1 % (36-46); Hemoglobin 13.6 g/dL (12.0-16.0); Lymphocytes Absolute Auto 2200 /uL (1100-4500); Lymphocytes Percent Auto 23.2 % (25-40); Mean Corpuscular HGB Conc 33.2 % (30-36); Mean Corpuscular Volume 81.5 fL (80-100); Monocytes Absolute Auto 700 /uL (0-900); Monocytes Percent Auto 7.5 % (3-14); Neutrophils Absolute Auto 6300 /uL (1500-7000); Neutrophils Percent Auto 65.5 % (50-75); Platelet Count 321 X10^3/uL (150-400); Red Blood Cell Count 5.05 X10^6/uL (4.0-5.2); White Blood Cell Count 9.6 X10^3/uL (4.5-11.0)
[2020-06-19 11:30] LABS: BUN Creatinine Ratio 31.6 (6-22); Blood Urea Nitrogen 18 mg/dL (7-17); Calcium 8.9 mg/dL (8.4-10.2); Carbon Dioxide 29 mmol/L (22-32); Chloride 103 mmol/L (98-107); Estimated Glomerular Filt Rate > 60.0 mL/min (>60); Glucose 133 mg/dL (80-110); HEMOLYSIS < 15 (0-50); Potassium 3.7 mmol/L (3.4-5.1); Sodium 139 mmol/L (137-145)
[2020-06-19 12:09] LABS: Hemoglobin A1C% w Est Avg Glu 6.6 % (4.0-6.0)
[2020-06-19 14:44] LABS: Creatinine Urine Random 40.2 mg/dL
[2020-06-19 14:50] LABS: Microalbumin Urine Random < 0.6 mg/dL (0-1.6)
== END ==
PROVIDERS: PCP Family Medicine; Referring Provider Internal Medicine; Visit Provider Family Medicine
DX: Z12.31 Encounter for screening mammogram for malignant neoplasm of breast (principal); Z80.3 Family history of malignant neoplasm of breast; E11.9 Type 2 diabetes mellitus without complications
CPT/HCPCS: 36415; 77063; 77067; 80048; 82043; 82570; 83036; 85025

== ENCOUNTER → 2020-07-02 08:39 | Outpatient (CLI) | payer OTHER, SELFPAY ==
--- NOTE | 2020-07-02 | DI.RAD.S_ITS ---
PROCEDURE: XR HAND LT MIN 3V INDICATIONS: Rheumatoid arthritis TECHNIQUE: 3 views of the hand(s) acquired. COMPARISON: [facility], , HAND 3V LEFT, 03/14/2017, 14:15. FINDINGS: Bones: No fractures or dislocations. Carpal bones are normally aligned. No suspicious bony lesions. There is marginal lucency at the PIP joint of the middle finger, probably present on the prior study. First CMC and triscaphe joint degeneration Scattered degenerative subchondral sclerosis and spurring. Soft tissues: No suspicious soft tissue calcifications. IMPRESSION: Marginal lucency suggestive of erosion at the PIP joint of the middle finger, probably present on the prior study however slightly more conspicuous. Unclear if this is due to differences in patient positioning. Dictated by: Jerod Ochoa M.D. on 07/02/2020 at 10:37 Approved by: Jerod Ochoa M.D. on 07/02/2020 at 10:40
--- NOTE | 2020-07-02 | DI.RAD.S_ITS ---
PROCEDURE: XR HAND RT MIN 3V INDICATIONS: Rheumatoid arthritis TECHNIQUE: 3 views of the hand(s) acquired. COMPARISON: None. FINDINGS: Bones: No fractures or dislocations. Carpal bones are normally aligned. No suspicious bony lesions. First CMC and triscaphe joint degeneration Scattered degenerative subchondral sclerosis and spurring. Marginal lucency marginal lucency present at the PIP joint of the index finger. Soft tissues: No suspicious soft tissue calcifications. IMPRESSION: Marginal lucency possible erosion present at the PIP joint of the index finger, technically age indeterminate finding in the absence of relevant prior studies Dictated by: Jerod Ochoa M.D. on 07/02/2020 at 10:41 Approved by: Jerod Ochoa M.D. on 07/02/2020 at 10:43
[2020-07-02 11:46] LABS: Free T4, Direct Thyroxine 0.72 ng/dL (0.78-2.19)
[2020-07-02 12:00] LABS: Thyroid Stimulating Hormone 2.11 uIU/mL (0.47-4.68)
[2020-07-02 13:46] LABS: C-Reactive Protein Quant 2.5 mg/dL (<1.0); Cholesterol 181 mg/dL (140-199); HDL Cholesterol 55 mg/dL (40-60); LDL Cholesterol Calculated 108 mg/dL (<100); Triglycerides 88 mg/dL (35-150)
[2020-07-02 13:47] LABS: NT-proBNP (BNP-Adult 18+) 71 pg/mL (<125)
[2020-07-02 13:49] LABS: Rheumatoid Factor < 8.6 IU/mL (<12.0)
[2020-07-03 06:08] LABS: Triiodothyronine T3 Total 137 ng/dL (71-180)
[2020-07-04 13:50] LABS: ANA Screen, IFA Negative (.)
[2020-07-06 21:25] LABS: CCP Antibodies IgG/IgA 29 units (0-19)
== END ==
PROVIDERS: PCP Internal Medicine; Referring Provider Internal Medicine; Visit Provider Internal Medicine
DX: M06.09 Rheumatoid arthritis without rheumatoid factor, multiple sites (principal); I27.20 Pulmonary hypertension, unspecified; R06.02 Shortness of breath; E03.9 Hypothyroidism, unspecified
CPT/HCPCS: 36415; 73130; 80061; 83880; 84439; 84443; 84480; 86038; 86140; 86200; 86430

== ENCOUNTER → 2022-04-29 07:21 | Outpatient (CLI) | payer OTHER, SELFPAY ==
[2022-04-29 09:48] LABS: Hematocrit 37.6 % (36-46); Hemoglobin 12.8 g/dL (12.0-16.0); Mean Corpuscular HGB Conc 34.1 % (30-36); Mean Corpuscular Hemoglobin 27.3 PG (26-34); Mean Corpuscular Volume 79.9 fL (80-100); Platelet Count 337 X10^3/uL (150-400); Red Blood Cell Count 4.71 X10^6/uL (4.0-5.2); Red Cell Distribution Width 14.2 % (11.6-14.8); White Blood Cell Count 9.4 X10^3/uL (4.5-11.0)
[2022-04-29 10:08] LABS: Hemoglobin A1C% w Est Avg Glu 6.3 % (4.0-6.0)
[2022-04-29 10:15] LABS: Erythrocyte Sedimentation Rate 46 MM/HR (0-20)
[2022-04-29 10:44] LABS: Alanine Aminotransferase 24 IU/L (<35); Albumin 3.9 g/dL (3.5-5.0); Albumin Globulin Ratio 1.3 (1.0-2.8); Alkaline Phosphatase 64 U/L (38-126); Aspartate Aminotransferase 21 IU/L (14-36); BUN Creatinine Ratio 22.5 (6-22); Bilirubin Total 0.3 mg/dL (0.2-1.3); Blood Urea Nitrogen 23 mg/dL (7-17); C-Reactive Protein Quant 2.7 mg/dL (<1.0); Calcium 8.8 mg/dL (8.4-10.2); Carbon Dioxide 26 mmol/L (22-32); Chloride 98 mmol/L (98-107); Cholesterol 170 mg/dL (140-199); Estimated Glomerular Filt Rate > 60 mL/min (>60); Globulin 3.1 g/dL (1.7-4.1); Glucose 103 mg/dL (80-110); HDL Cholesterol 53 mg/dL (40-60); HEMOLYSIS < 15 (0-50); LDL Cholesterol Calculated 101 mg/dL (<100); Potassium 3.8 mmol/L (3.4-5.1); Sodium 138 mmol/L (137-145); Triglycerides 82 mg/dL (35-150)
[2022-04-29 10:54] LABS: Vitamin D 25 Hydroxy (D3) 14.7 ng/mL (30.0-100.0)
[2022-04-29 11:06] LABS: TSH w/ Reflex to FT4 3.24 uIU/mL (0.47-4.68)
== END ==
PROVIDERS: PCP Internal Medicine; Referring Provider Internal Medicine; Visit Provider Internal Medicine
DX: E03.9 Hypothyroidism, unspecified (principal); E11.69 Type 2 diabetes mellitus with other specified complication; E78.2 Mixed hyperlipidemia; E78.5 Hyperlipidemia, unspecified; M06.9 Rheumatoid arthritis, unspecified
CPT/HCPCS: 36415; 80053; 80061; 82306; 83036; 84443; 85027; 85651; 86140

== ENCOUNTER → 2022-05-14 09:53 | Outpatient (CLI) | payer OTHER, SELFPAY ==
--- NOTE | 2022-05-14 09:58 | DI.MG.S_ITS ---
BILATERAL DIGITAL SCREENING MAMMOGRAM 3D/2D WITH CAD: 05/14/2022 CLINICAL: Routine screening. Family history of breast cancer. Comparison is made to exams dated: 06/19/2020 mammogram, 08/31/2012 mammogram, 06/08/2011 mammogram, and 12/22/2010 mammogram - [facility]. There are scattered areas of fibroglandular density in both breasts (category b / 25%-50% glandular tissue). Current study was also evaluated with a Computer Aided Detection (CAD) system. No significant masses, calcifications, or other findings are seen in either breast. There has been no significant interval change. IMPRESSION: NEGATIVE There is no mammographic evidence of malignancy. A 1 year screening mammogram is recommended. Based on the Tyrer Cuzick model (a risk assessment model) the patient's lifetime risk is 8.5% and her 10 year risk is 4.1%. According to the ACR, ACS, and NCCN guidelines, an annual breast MRI exam along with mammogram is recommended if the patient's lifetime risk is 20% or greater. This exam was interpreted at Station ID: [id number]. NOTE: For mammograms, a report in lay terms will be sent to the patient. Approximately 15% of breast malignancies will not be visualized mammographically. In the management of a palpable breast mass, a negative mammogram must not discourage biopsy of a clinically suspicious lesion. Electronically Signed By: Phuc huntley/harish:05/16/2022 07:24:34 letter sent: Normal Exam ACR BI-RADS Category 1: Negative 3341F
== END ==
PROVIDERS: PCP Internal Medicine; Referring Provider Internal Medicine; Visit Provider Internal Medicine
DX: Z12.31 Encounter for screening mammogram for malignant neoplasm of breast (principal); Z80.3 Family history of malignant neoplasm of breast
CPT/HCPCS: 77063; 77067

== ENCOUNTER → 2022-07-15 15:22 | Outpatient (CLI) | payer OTHER, SELFPAY | PROVIDERS: PCP Internal Medicine; Referring Provider Internal Medicine; Visit Provider Internal Medicine | DX: Z13.820 Encounter for screening for osteoporosis (principal); Z78.0 Asymptomatic menopausal state; M06.9 Rheumatoid arthritis, unspecified; Z90.710 Acquired absence of both cervix and uterus | CPT/HCPCS: 77080 ==

== ENCOUNTER → 2022-10-08 08:10 | Outpatient (CLI) | payer OTHER, SELFPAY ==
[2022-10-08 09:12] LABS: Alanine Aminotransferase 35 IU/L (<35); Albumin 3.9 g/dL (3.5-5.0); Albumin Globulin Ratio 1.3 (1.0-2.8); Alkaline Phosphatase 65 U/L (38-126); Aspartate Aminotransferase 26 IU/L (14-36); BUN Creatinine Ratio 32.9 (6-22); Bilirubin Total 0.4 mg/dL (0.2-1.3); Blood Urea Nitrogen 26 mg/dL (7-17); Calcium 8.7 mg/dL (8.4-10.2); Carbon Dioxide 28 mmol/L (22-32); Chloride 99 mmol/L (98-107); Estimated Glomerular Filt Rate > 60 mL/min (>60); Glucose 135 mg/dL (80-110); HEMOLYSIS < 15 (0-50); Potassium 3.9 mmol/L (3.4-5.1); Sodium 136 mmol/L (137-145); Total Protein 6.9 g/dL (6.3-8.2)
[2022-10-08 09:16] LABS: Creatinine Urine Random 73.2 mg/dL
[2022-10-08 09:21] LABS: Microalbumi Creatinin Ratio Ur 9.5 ug/mg CR (<30); Microalbumin Urine Random 0.7 mg/dL (0-1.6)
[2022-10-09 07:47] LABS: Labcorp Hemoglobin (Hb) A1c 6.5 % (4.8-5.6)
== END ==
PROVIDERS: PCP Internal Medicine; Referring Provider Internal Medicine; Visit Provider Internal Medicine
DX: E11.69 Type 2 diabetes mellitus with other specified complication (principal); E78.5 Hyperlipidemia, unspecified; I10 Essential (primary) hypertension; E03.9 Hypothyroidism, unspecified; E78.2 Mixed hyperlipidemia; M06.9 Rheumatoid arthritis, unspecified
CPT/HCPCS: 36415; 80053; 82043; 82570; 83036

== ENCOUNTER → 2023-01-24 07:35 | Outpatient (CLI) | payer OTHER, SELFPAY ==
[2023-01-24 08:45] LABS: Aspartate Aminotransferase 31 IU/L (14-36); BUN Creatinine Ratio 20.6 (6-22); Blood Urea Nitrogen 14 mg/dL (7-17); Calcium 8.8 mg/dL (8.4-10.2); Carbon Dioxide 29 mmol/L (22-32); Chloride 102 mmol/L (98-107); Cholesterol 152 mg/dL (140-199); Estimated Glomerular Filt Rate > 60 mL/min (>60); Glucose 143 mg/dL (80-110); HDL Cholesterol 67 mg/dL (40-60); HEMOLYSIS < 15 (0-50); LDL Cholesterol Calculated 59 mg/dL (<100); Potassium 3.9 mmol/L (3.4-5.1); Sodium 139 mmol/L (137-145); Triglycerides 131 mg/dL (35-150)
[2023-01-26 07:43] LABS: Labcorp Hemoglobin (Hb) A1c 7.1 % (4.8-5.6)
== END ==
PROVIDERS: PCP Internal Medicine; Referring Provider Internal Medicine; Visit Provider Internal Medicine
DX: E11.69 Type 2 diabetes mellitus with other specified complication (principal); E78.5 Hyperlipidemia, unspecified; E78.2 Mixed hyperlipidemia; I10 Essential (primary) hypertension
CPT/HCPCS: 36415; 80048; 80061; 83036; 84450

== ENCOUNTER → 2023-05-15 07:45 | Outpatient (CLI) | payer OTHER, SELFPAY ==
[2023-05-15 08:05] LABS: Hemoglobin A1C% w Est Avg Glu 6.7 % (4.0-6.0)
[2023-05-15 08:25] LABS: Blood Urea Nitrogen 12 mg/dL (7-17); Calcium 9.5 mg/dL (8.4-10.2); Carbon Dioxide 25 mmol/L (22-32); Chloride 103 mmol/L (98-107); Estimated Glomerular Filt Rate > 60 mL/min (>60); Glucose 126 mg/dL (80-110); HEMOLYSIS < 15 (0-50); Potassium 3.7 mmol/L (3.4-5.1); Sodium 138 mmol/L (137-145)
== END ==
PROVIDERS: PCP Internal Medicine; Referring Provider Internal Medicine; Visit Provider Internal Medicine
DX: E11.69 Type 2 diabetes mellitus with other specified complication (principal); E78.5 Hyperlipidemia, unspecified
CPT/HCPCS: 36415; 80048; 83036

== ENCOUNTER → 2023-06-03 08:46 | Outpatient (CLI) | payer OTHER, SELFPAY ==
--- NOTE | 2023-06-03 | DI.MG.S_ITS ---
BILATERAL DIGITAL SCREENING MAMMOGRAM 3D/2D WITH CAD: 06/03/2023 CLINICAL: Routine screening. Family history of breast cancer. Comparison is made to exams dated: 05/14/2022 mammogram, 06/19/2020 mammogram, and 08/31/2012 mammogram - [facility]. There are scattered areas of fibroglandular density in both breasts (category b / 25%-50% glandular tissue). Current study was also evaluated with a Computer Aided Detection (CAD) system. No significant masses, calcifications, or other findings are seen in either breast. There has been no significant interval change. IMPRESSION: NEGATIVE There is no mammographic evidence of malignancy. A 1 year screening mammogram is recommended. Based on the Tyrer Cuzick model (a risk assessment model) the patient's lifetime risk is 8.1% and her 10 year risk is 4.1%. According to the ACR, ACS, and NCCN guidelines, an annual breast MRI exam along with mammogram is recommended if the patient's lifetime risk is 20% or greater. This exam was interpreted at Station ID: [id number]. NOTE: For mammograms, a report in lay terms will be sent to the patient. Approximately 15% of breast malignancies will not be visualized mammographically. In the management of a palpable breast mass, a negative mammogram must not discourage biopsy of a clinically suspicious lesion. Electronically Signed By: Marcy degroot/harish:06/05/2023 15:07:02 letter sent: Normal Exam ACR BI-RADS Category 1: Negative 3341F
== END ==
PROVIDERS: PCP Internal Medicine; Referring Provider Internal Medicine; Visit Provider Internal Medicine
DX: Z12.31 Encounter for screening mammogram for malignant neoplasm of breast (principal); Z80.3 Family history of malignant neoplasm of breast
CPT/HCPCS: 77063; 77067

== ENCOUNTER 2023-06-06 11:29 | Day surgery (SDC) | payer OTHER, SELFPAY ==
--- NOTE | 2023-06-06 | PATH_ITS ---
[facility] Accession Number: [id number] No. of containers..03 Tissue . 01 Material submitted: . PART A: colon - TRANSVERSE POLYP PART B: cecum - CECAL POLYP PART C: colon - TRANSVERSE POLYP NUMBER 2 (TWO) . 01 Diagnosis: A. Transverse Colon, Polyp: Tubular adenoma. . B. Cecum, Polyp: Tubular adenoma. . C. Transverse Colon, Polyp #2: Tubular adenoma. MRV 06/14/2023 1750 Local . 01 Electronically signed: . Mell Velasquez MD, Pathologist NPI- [id number] . 01 Gross description: . Part A: TRANSVERSE POLYP: Received in formalin is multiple fragment(s) of jonas, soft tissue measuring 1.0 x 0.5 x 0.1 cm in aggregate submitted entirely in 1 cassette(s) Part B: CECAL POLYP : Received in formalin is 1 fragment(s) of jonas, soft tissue measuring 0.4 x 0.2 x 0.2 cm submitted entirely in 1 cassette(s) Part C: TRANSVERSE POLYP NUMBER 2 (TWO): Received in formalin is multiple fragment(s) of jonas, soft tissue measuring 2.5 x 1.0 x 0.2 cm in aggregate submitted entirely in 1 cassette(s) /AAY 06/07/2023 0509 Local . 01 Pathologist provided ICD-10: D12.3, D12.0 . 01 CPT . 969020, 120699, 622116 Specimen Comment: A courtesy copy of this report has been sent to [phone] Performed at: 01 [facility] [address] [place] [address] [address] [facility], [place], [place] [id number] MD Dontae Tellez MD Phone: [phone]
[2023-06-06 11:59] VITALS: BMI 51.2
[2023-06-06] MEDS: LACTATED RINGERS 1,000 ML 42 ML IV (12:00)
[2023-06-06 12:07] VITALS: BP 136/75; PULSE 95; RESP 20; TEMP 36.4; O2SAT 100
--- NOTE | 2023-06-06 12:55 | PM.HP.1 ---
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 No previous colonoscopy. No family history of intestinal malignancy. No particular abdominal concerns today. [facility] Medical History PTSD (post-traumatic stress disorder) Restless leg syndrome Rubella Mumps (~1993) Measles Chicken pox (~1962) Cataracts, bilateral (~2019) Primary osteoarthritis involving multiple joints Iliotibial band syndrome, left leg Asthma, mild intermittent Rheumatoid arthritis (~1995) Depression, major, recurrent Acquired hypothyroidism Mixed hyperlipidemia DM type 2 with diabetic dyslipidemia Obesity (06/03/14) Essential hypertension Surgical History S/P total abdominal hysterectomy and bilateral salpingo-oophorectomy Status post exploratory laparotomy Status post cholecystectomy Status post delivery Status post tonsillectomy and adenoidectomy Social History marital status: household members: spouse Smoking Status: Former smoker alcohol intake: never substance use type: does not use Meds Home Medications and Allergies Home Medications Medication Instructions Recorded Confirmed Type aspirin 81 mg tablet,delayed 81 mg PO DAILY ##0 07/11/11 06/06/23 History release [bioastin] 1 tab PO Q DAY ##0 08/27/12 06/06/23 History cetirizine 10 mg tablet (Zyrtec) 10 mg PO DAILY 04/03/19 06/06/23 History thiamine HCl (vitamin B1) 50 mg 50 mg PO DAILY 04/03/19 06/06/23 History tablet albuterol sulfate 2.5 mg/3 mL 2.5 mg (3 mL) inhalation Q2H PRN 09/17/19 06/06/23 Rx (0.083 %) solution for nebulization shortness of breath or wheezing #90 mL magnesium oxide 400 mg PO DAILY 04/22/20 06/06/23 History DISABLED PARKING PERMIT #1 ea 01/13/21 05/15/23 Rx clobetasol 0.05 % topical cream 1 applic topical BEDTIME #60 grams 01/13/21 05/15/23 Rx Parking Permit... #1 ea 04/28/22 05/15/23 Rx berbezine 1 cap PO DAILY 04/28/22 06/06/23 History alcycxzzt-zyrovqcs-hrd-hyalur 2 tab PO DAILY 04/28/22 06/06/23 History potassium chloride 20 mEq 20 meq PO DAILY #90 tabs 06/29/22 06/06/23 Rx tablet,extended release fluoxetine 20 mg capsule 20 mg PO DAILY #90 caps 08/03/22 06/06/23 Rx hydroxychloroquine 200 mg tablet 400 mg (2 x 200 mg) PO DAILY #180 08/03/22 06/06/23 Rx tabs rosuvastatin 10 mg tablet 10 mg PO DAILY #90 tabs 08/04/22 06/06/23 Rx albuterol sulfate 90 mcg/actuation 1 - 2 puff inhalation Q4-6H PRN 10/13/22 05/15/23 Rx aerosol inhaler (Ventolin HFA) shortness of breath or wheezing #8.5 grams furosemide 40 mg tablet See Rx Instructions .Route 11/07/22 06/06/23 Rx .COMPLEX #45 tabs ibuprofen 800 mg tablet See Rx Instructions .Route 12/12/22 06/06/23 Rx .COMPLEX #90 tabs triamterene 37.5 See Rx Instructions .Route 12/12/22 06/06/23 Rx mg-hydrochlorothiazide 25 mg tablet .COMPLEX #90 tabs fluticasone 500 mcg-salmeterol 50 See Rx Instructions .Route 05/29/23 06/06/23 Rx mcg/dose blistr powdr for .COMPLEX #60 ea inhalation (Advair Diskus) valsartan 80 mg tablet See Rx Instructions .Route 05/29/23 06/06/23 Rx .COMPLEX #90 tabs liothyronine 25 mcg tablet 25 mcg PO DAILY 06/06/23 06/06/23 History (Cytomel) tirzepatide 7.5 mg/0.5 mL 7.5 mg SUBCUT QWEEK 06/06/23 06/06/23 History subcutaneous pen injector (Kary) Allergies Allergy/AdvReac Type Severity Reaction Status Date / Time codeine [CODEINE] Allergy Unknown Verified 06/06/23 11:50 nitrofurantoin Allergy Unknown Verified 06/06/23 11:50 [NITROFURANTOIN] Penicillins [PENICILLINS] Allergy Unknown Verified 06/06/23 11:50 metformin AdvReac Intermediate loose Verified 06/06/23 11:50 stools Exam Vital Signs (past 8 hours): - 06/06/23 12:07 Temperature 97.6 F Pulse Rate 95 H Respiratory Rate 20 Blood Pressure 136/75 Pulse Oximetry 100 Oxygen Delivery Method Room Air Oxygen Delivery Method Room Air Narrative Exam Narrative: General adult woman alert oriented no acute distress Chest nonlabored respiration Extremities warm well perfused Assessment & Plan Assessment & Plan narrative: The patient requires colorectal screening and colonoscopy is recommended. Technical details were discussed. Risks, benefits, alternatives explained. Risks including but not limited to myocardial infarction, aspiration, bleeding, pain, missed lesion, incomplete examination, need for further radiographic studies, colonic perforation, and need for major abdominal surgery were discussed. All questions were answered to their satisfaction, and they are in agreement with this plan.
--- NOTE | 2023-06-06 13:54 | P.OP.COLON_ITS ---
Operative Date/Time/Diagnoses Date of procedure: 06/06/23 Time of procedure: 13:54 Pre-op diagnosis: Colorectal screening Post-op diagnosis: other (Colonic polypsx 4) Procedure & Clinicians Study performed: Colonoscopy and polypectomy Same procedure as scheduled: Yes Indications: 68-year-old woman here for 1st time screening colonoscopy Surgeon: Eder Moore Procedure Notes Procedure in detail: The history and physical was performed/updated and the patient is ASA class is 2. The procedure was discussed in detail with the patient. Potential risks complications including infection, bleeding, missed diagnosis, perforation, need for surgery, and were explained. Their questions were answered and informed consent was obtained. Patient was brought to the procedure room and placed standard monitoring equipment. The patient's vital signs were monitored continuously throughout the entire procedure. Prior to starting time-out was performed. The patient was placed in the left lateral recumbent position. Procedural sedation was administered by anesthesia. Examination began with a thorough inspection of the perianal area there was no evidence of fissures, fistulae, external hemorrhoids or cutaneous malignancy. The colonoscopy scope was then placed into the anal canal and was advanced to the cecum, which was identified by the ileocecal valve, the appendiceal orifice and the confluence of the taenia. The scope was then slowly withdrawn examining colon thoroughly in all directions, irrigating it of any residual stool. The scope was retroflexed within the rectum The patient tolerated the procedure well. They will be discharged once criteria are met. The prep was of good/excellent quality. The withdrawl time was 7 minutes. FINDINGS * Cecal polyp-3 mm removed with biopsy forceps * Transverse. Within the transverse colon there are 3 polyps. The 1st 2 are labeled #3 and are 3-5 mm removed with biopsy forceps. The specimen labeled #1 is a 2 cm sessile polyp which was partially removed with cold snare. It is within a fold of mucosa and a turn within the colon and is extremely difficult to remove endoscopically. The area just distal to the polyp was inked with tattoo. Specimen(s): other (#1Transverse polyp, #2Cecal polyp, #3Transverse polyps x 2) Impression: Multiple polyps with incomplete endoscopic resection of of single polyp Post-procedure Plan for aftercare: Follow-up is dependent on pathology findings. Disposition: same day surgery
[2023-06-06 13:55] VITALS: BP 159/81; PULSE 84; RESP 19; TEMP 36.2; O2SAT 99
[2023-06-06 14:00] VITALS: BP 156/73; PULSE 79; RESP 18; O2SAT 99
[2023-06-06 14:05] VITALS: BP 167/62; PULSE 78; RESP 16; TEMP 36.2; O2SAT 100
[2023-06-06 14:17] VITALS: BP 130/71
== END 2023-06-06 14:40 | disposition home or self-care (01) ==
PROVIDERS: PCP Internal Medicine; Referring Provider Surgery; Visit Provider Surgery
PROC: 0DJD8ZZ Inspection of Lower Intestinal Tract, Via Natural or Artificial Opening Endoscopic (ICD-10-PCS; CPT 45378; principal; 2023-06-06 12:45)
DX: Z12.11 Encounter for screening for malignant neoplasm of colon (principal); D12.3 Benign neoplasm of transverse colon; D12.0 Benign neoplasm of cecum
CPT/HCPCS: 45381; 45385; 45380; 82962; J2704

== ENCOUNTER → 2023-08-23 07:41 | Outpatient (CLI) | payer OTHER, SELFPAY ==
[2023-08-23 08:49] LABS: Hemoglobin A1C% w Est Avg Glu 6.3 % (4.0-6.0)
[2023-08-23 09:14] LABS: Aspartate Aminotransferase 27 IU/L (14-36); BUN Creatinine Ratio 29.1 (6-22); Blood Urea Nitrogen 23 mg/dL (7-17); Carbon Dioxide 24 mmol/L (22-32); Chloride 98 mmol/L (98-107); Estimated Glomerular Filt Rate > 60 mL/min (>60); Glucose 114 mg/dL (80-110); HEMOLYSIS < 15 (0-50); Potassium 4.1 mmol/L (3.4-5.1); Sodium 136 mmol/L (137-145)
[2023-08-23 09:37] LABS: TSH w/ Reflex to FT4 1.93 uIU/mL (0.47-4.68)
[2023-08-23 10:35] LABS: Creatinine Urine Random 144.9 mg/dL
[2023-08-23 10:41] LABS: Microalbumin Urine Random < 0.6 mg/dL (0-1.6)
== END ==
PROVIDERS: PCP Internal Medicine; Referring Provider Internal Medicine; Visit Provider Internal Medicine
DX: M06.9 Rheumatoid arthritis, unspecified (principal); E03.9 Hypothyroidism, unspecified; E78.2 Mixed hyperlipidemia; E11.69 Type 2 diabetes mellitus with other specified complication; E78.5 Hyperlipidemia, unspecified
CPT/HCPCS: 36415; 80048; 82043; 82570; 83036; 84443; 84450

== ENCOUNTER → 2023-12-11 08:11 | Outpatient (CLI) | payer OTHER, SELFPAY ==
[2023-12-11 09:30] LABS: Hemoglobin A1C% w Est Avg Glu 6.3 % (4.0-6.0)
[2023-12-11 09:47] LABS: BUN Creatinine Ratio 21.6 (6-22); Blood Urea Nitrogen 16 mg/dL (7-17); Calcium 8.8 mg/dL (8.4-10.2); Carbon Dioxide 30 mmol/L (22-32); Chloride 103 mmol/L (98-107); Estimated Glomerular Filt Rate > 60 mL/min (>60); Glucose 120 mg/dL (80-110); HEMOLYSIS < 15 (0-50); Sodium 138 mmol/L (137-145)
== END ==
PROVIDERS: PCP Internal Medicine; Referring Provider Internal Medicine; Visit Provider Internal Medicine
DX: E11.69 Type 2 diabetes mellitus with other specified complication (principal); E78.5 Hyperlipidemia, unspecified
CPT/HCPCS: 36415; 80048; 83036

== ENCOUNTER → 2024-04-19 07:45 | Outpatient (CLI) | payer OTHER, SELFPAY ==
[2024-04-19 09:05] LABS: BUN Creatinine Ratio 20.7 (6-22); Blood Urea Nitrogen 17 mg/dL (7-17); Calcium 8.9 mg/dL (8.4-10.2); Carbon Dioxide 28 mmol/L (22-32); Chloride 102 mmol/L (98-107); Estimated Glomerular Filt Rate > 60 mL/min (>60); Glucose 99 mg/dL (80-110); HEMOLYSIS < 15 (0-50); Potassium 3.7 mmol/L (3.4-5.1); Sodium 136 mmol/L (137-145)
== END ==
LOC: LAB 07:46
PROVIDERS: PCP Internal Medicine; Referring Provider Internal Medicine; Visit Provider Internal Medicine
DX: E11.69 Type 2 diabetes mellitus with other specified complication (principal); E78.5 Hyperlipidemia, unspecified
CPT/HCPCS: 36415; 80048; 83036

== ENCOUNTER 2024-07-05 01:35 | Emergency (ER) | payer OTHER, SELFPAY ==
[2024-07-05] VITALS (15 sets, daily range): BP systolic 114–167; BP diastolic 50–75; PULSE 69–88; RESP 14–23; TEMP 36.9; O2SAT 95–99; BMI 45.7
--- NOTE | 2024-07-05 01:39 | DI.RAD.S_ITS ---
PROCEDURE: XR CHEST 1V INDICATIONS: chest pain TECHNIQUE: One view of the chest was acquired. COMPARISON: [facility], CR, XR CHEST 2V, 09/17/2019, 10:31. FINDINGS: Surgical changes and devices: None. Lungs and pleura: Lungs are clear. No pleural effusions or pneumothorax. Mediastinum: Mediastinal contours appear normal. Heart size is normal. Bones and chest wall: No suspicious bony lesions. Overlying soft tissues appear unremarkable. IMPRESSION: No acute cardiopulmonary abnormality is seen. Approved by: Saniya Yang M.D.,Ph.D. on 07/05/2024 at 2:25
--- NOTE | 2024-07-05 01:47 | EKG_ITS ---
[address] [address] [place] [address] Test Date: 2024-07-05 Pat Name: Mavis Salazar Department: [facility] Room: Gender: Female Software Recruiter: MANNY : 1955 Requested By: Order Number: [id number] Reading MD: Lowell Geronimo Measurements Intervals [place] Rate: 89 P: 55 WI: 164 QRS: 3 QRSD: 96 T: 93 QT: 372 QTc: 452 Interpretive Statements Normal sinus rhythm Nonspecific ST and T wave abnormality Electronically Signed On 07-05-2024 8:19:21 PST by Lowell Geronimo
[2024-07-05 01:56] LABS: Add Manual Diff / Slide Review NO; Basophils Absolute Auto 100 /uL (0-100); Basophils Percent Auto 0.7 % (0-2); Eosinophils Absolute Auto 200 /uL (0-450); Eosinophils Percent Auto 2.1 % (2-4); Hematocrit 42.9 % (36-46); Hemoglobin 14.5 g/dL (12.0-16.0); Lymphocytes Absolute Auto 3000 /uL (1100-4500); Lymphocytes Percent Auto 31.2 % (25-40); Mean Corpuscular HGB Conc 33.7 % (30-36); Mean Corpuscular Hemoglobin 27.2 PG (26-34); Mean Corpuscular Volume 80.7 fL (80-100); Monocytes Absolute Auto 900 /uL (0-900); Monocytes Percent Auto 9.7 % (3-14); Neutrophils Absolute Auto 5500 /uL (1500-7000); Neutrophils Percent Auto 56.3 % (50-75); Platelet Count 310 X10^3/uL (150-400); Red Blood Cell Count 5.32 X10^6/uL (4.0-5.2); Red Cell Distribution Width 14.2 % (11.6-14.8); White Blood Cell Count 9.8 X10^3/uL (4.5-11.0)
[2024-07-05] MEDS: ASPIRIN 81 MG CHEW TAB 324 MG PO (01:57)
[2024-07-05 02:03] LABS: Prothrombin Time 11.7 SECONDS (9.4-12.5)
[2024-07-05 02:06] LABS: PTT Partial Thromboplastin Tim 35 SECONDS (25.1-36.5)
--- NOTE | 2024-07-05 02:09 | ED.CHESTPAIN ---
HPI - Chest Pain General Chief Complaint: Chest Pain Stated Complaint: CHEST PAIN Time Seen by Provider: 07/05/24 02:09 Source: patient Mode of arrival: Ambulatory History of Present Illness HPI narrative: 69-year-old female with no known CAD but multiple cardiac risk factors, complains of left lower precordial sternal area discomfort that radiated straight back, and to her left arm, she thought initially it might be her GERD, took extra-strength Tums, slight reduction in discomfort, still has residual 3/10 chest discomfort, back and arm symptoms resolved. No diaphoresis. No worsening with inspiration or movements of trunk or arms. History of smoking, 25 pack years, quit 1991. History of hypercholesterolemia, previous on statin that was not tolerated after taking 1 year. History of diabetes, on Mounjaro. History of hypertension taking valsartan and Dyazide. She had chest pain before her eventual diagnosis of rheumatoid arthritis 20 years ago, remote cardiac catheterization that was negative, no coronary artery interventions. No recent cardiovascular stress testing. Related Data Home Medications Medication Instructions Recorded Confirmed aspirin 81 mg tablet,delayed 81 mg PO DAILY ##0 07/11/11 04/22/24 release [bioastin] 1 tab PO Q DAY ##0 08/27/12 04/22/24 cetirizine 10 mg tablet (Zyrtec) 10 mg PO DAILY 04/03/19 04/22/24 thiamine HCl (vitamin B1) 50 mg 50 mg PO DAILY 04/03/19 04/22/24 tablet magnesium oxide 400 mg PO DAILY 04/22/20 04/22/24 berbezine 1 cap PO DAILY 04/28/22 04/22/24 bdurubboj-imhxgrxf-ddt-hyalur 2 tab PO DAILY 04/28/22 04/22/24 clindamycin HCl 150 mg capsule 150 mg PO Q6H 12/11/23 04/22/24 Previous Rx's Medication Instructions Recorded albuterol sulfate 2.5 mg/3 mL 2.5 mg (3 mL) inhalation Q2H PRN 09/17/19 (0.083 %) solution for nebulization shortness of breath or wheezing #90 mL clobetasol 0.05 % topical cream 1 applic topical BEDTIME #60 grams 01/13/21 Parking Permit... #1 ea 04/28/22 potassium chloride 20 mEq 20 meq PO DAILY #90 tabs 07/21/23 tablet,extended release fluoxetine 20 mg capsule 20 mg PO DAILY #90 caps 08/17/23 hydroxychloroquine 200 mg tablet 400 mg (2 x 200 mg) PO DAILY #180 08/17/23 tabs liothyronine 25 mcg tablet 25 mcg PO DAILY #90 tabs 08/17/23 (Cytomel) rosuvastatin 10 mg tablet 10 mg PO DAILY #90 tabs 08/17/23 albuterol sulfate 90 mcg/actuation 1 - 2 puff inhalation Q4-6H PRN 09/27/23 aerosol inhaler (Ventolin HFA) shortness of breath or wheezing #8.5 grams furosemide 40 mg tablet See Rx Instructions .Route 11/15/23 .COMPLEX #45 tabs valsartan 80 mg tablet 80 mg PO DAILY #90 tabs 11/17/23 ibuprofen 800 mg tablet 800 mg PO TID PRN fever or pain 02/29/24 #90 tabs triamterene 37.5 See Rx Instructions .Route 04/25/24 mg-hydrochlorothiazide 25 mg tablet .COMPLEX #90 tabs tirzepatide 12.5 mg/0.5 mL 12.5 mg (0.5 mL) SUBCUT QWEEK #2 mL 05/21/24 subcutaneous pen injector (Mounjaro) fluticasone 500 mcg-salmeterol 50 See Rx Instructions .Route 06/03/24 mcg/dose blistr powdr for .COMPLEX #60 ea inhalation (Advair Diskus) Allergies Allergy/AdvReac Type Severity Reaction Status Date / Time codeine [CODEINE] Allergy Unknown Verified 07/05/24 01:51 nitrofurantoin Allergy Unknown Verified 07/05/24 01:51 [NITROFURANTOIN] metformin AdvReac Intermediate loose Verified 07/05/24 01:51 stools Penicillins [PENICILLINS] AdvReac Intermediate Rash Verified 07/05/24 01:51 Patient History Medical History Allergic rhinitis History of colonic polyps PTSD (post-traumatic stress disorder) Restless leg syndrome Rubella Mumps (~1993) Measles Chicken pox (~1962) Cataracts, bilateral (~2019) Primary osteoarthritis involving multiple joints Iliotibial band syndrome, left leg Asthma, mild intermittent Rheumatoid arthritis (~1995) Depression, major, recurrent Acquired hypothyroidism Mixed hyperlipidemia DM type 2 with diabetic dyslipidemia Obesity (06/03/14) Essential hypertension Surgical History S/P total abdominal hysterectomy and bilateral salpingo-oophorectomy Status post exploratory laparotomy Status post cholecystectomy Status post delivery Status post tonsillectomy and adenoidectomy Social History marital status: household members: spouse Smoking Status: Former smoker alcohol intake: never substance use type: does not use Smoking Status: Former smoker Exam Narrative Exam Narrative: GENERAL: Well-developed patient, in mild distress. HEAD: Atraumatic. Normocephalic. EYES: Pupils equal round and reactive. Extraocular motions intact. No scleral icterus. No injection or drainage. ENT: Nose without bleeding, purulent drainage. Throat without erythema, tonsillar hypertrophy or exudate. Airway patent. NECK: Trachea midline. Non tender CARDIOVASCULAR: Regular rate and rhythm without murmurs, gallops, or rubs. RESPIRATORY: Clear to auscultation. Breath sounds equal bilaterally. No wheezes, rales, or rhonchi. GASTROINTESTINAL: Abdomen soft, non-tender, nondistended. EXTREMITIES: No edema or joint tenderness. BACK: Nontender without deformity or crepitance. No flank tenderness. NEURO: AOx3. Motor functions grossly nonfocal SKIN: No rash or erythema of visible areas Initial Vital Signs Initial Vital Signs: Vital Signs Temperature 98.4 F 07/05/24 01:47 Pulse Rate 88 07/05/24 01:47 Respiratory Rate 22 07/05/24 01:47 Oxygen Delivery Method Room Air 07/05/24 01:47 Course Orders Ordered: ED Orders 07/05/24 01:39 XR chest 1V Stat EKG-12 Lead Stat 07/05/24 01:48 Complete Blood Count AUTO DIFF Stat Comprehensive Metabolic Panel Stat Lipase Stat Magnesium Stat NT-proBNP (BNP-Adult 18+) Stat PTT Partial Thromboplastin Timo Stat Prothrombin Time INR Stat Troponin & CK Cardiac Panel Stat 07/05/24 03:55 Trop I [Troponin I] Stat 07/05/24 05:31 EKG-12 Lead Stat 07/05/24 06:26 PTT Partial Thromboplastin Timo Q6H 07/05/24 12:00 PTT Partial Thromboplastin Timo Q6H 07/05/24 18:00 PTT Partial Thromboplastin Timo Q6H 07/06/24 00:00 PTT Partial Thromboplastin Timo Q6H 07/06/24 05:00 Hemoglobin and Hematocrit DAILY Platelet Count DAILY 07/07/24 05:00 Hemoglobin and Hematocrit DAILY Platelet Count DAILY Heparin Sodium/Dextrose (Heparin Drip) 25,000 unit in 500 mls @ 19.958 mls/hr IV CONT NICOLA; Protocol Last Admin: 07/05/24 06:10 Dose: 12 units/kg/hr, 29.937 mls/hr Documented By: VICKY Co-signed By: CURT Nitroglycerin (Nitroglycerin 0.4 Mg Sl Tab) 0.4 mg SL [id number] PRN PRN Reason: Chest Pain Last Admin: 07/05/24 07:22 Dose: 0.4 mg Documented By: Admin: 07/05/24 05:51 Dose: 0.4 mg Documented By: VICKY Discontinued Medications Aspirin (Aspirin 81 Mg Chew Tab) 324 mg PO NOW ONE Stop: 07/05/24 01:40 Last Admin: 07/05/24 01:57 Dose: 324 mg Documented By: CURTIS Heparin Sodium (Porcine) (Heparin 5,000 Unit/Ml Vial) 5,000 unit IV NOW ONE Stop: 07/05/24 05:54 Last Admin: 07/05/24 06:09 Dose: 5,000 unit Documented By: VICKY Vital Signs Vital signs: Vital Signs - 8 hr 07/05/24 01:47 07/05/24 01:47 07/05/24 01:50 Temperature 98.4 F Pulse Rate 88 87 86 Respiratory Rate 22 22 16 Blood Pressure Pulse Oximetry Oxygen Delivery Method Room Air 07/05/24 01:50 07/05/24 02:00 07/05/24 02:00 Temperature Pulse Rate 81 Respiratory Rate Blood Pressure 167/75 H 152/69 H Pulse Oximetry 99 Oxygen Delivery Method Room Air 07/05/24 02:30 07/05/24 02:30 07/05/24 03:00 Temperature Pulse Rate 73 Respiratory Rate 16 Blood Pressure 138/63 121/58 L Pulse Oximetry 98 Oxygen Delivery Method 07/05/24 03:00 07/05/24 03:30 07/05/24 03:30 Temperature Pulse Rate 72 69 Respiratory Rate 17 14 Blood Pressure 125/59 L Pulse Oximetry 97 97 Oxygen Delivery Method 07/05/24 04:00 07/05/24 04:00 07/05/24 04:30 Temperature Pulse Rate 74 Respiratory Rate 16 Blood Pressure 119/57 L 116/55 L Pulse Oximetry 96 Oxygen Delivery Method 07/05/24 04:30 07/05/24 05:00 07/05/24 05:00 Temperature Pulse Rate 74 81 Respiratory Rate 16 17 Blood Pressure 114/58 L Pulse Oximetry 95 95 Oxygen Delivery Method Room Air 07/05/24 05:29 07/05/24 05:30 07/05/24 05:30 Temperature Pulse Rate 83 82 Respiratory Rate 20 Blood Pressure 131/63 Pulse Oximetry 97 97 Oxygen Delivery Method 07/05/24 06:00 07/05/24 06:00 07/05/24 06:02 Temperature Pulse Rate 83 Respiratory Rate 23 Blood Pressure 130/61 124/50 L Pulse Oximetry 98 Oxygen Delivery Method 07/05/24 06:02 07/05/24 06:30 07/05/24 06:30 Temperature Pulse Rate 81 79 Respiratory Rate 19 16 Blood Pressure 139/64 Pulse Oximetry 99 99 Oxygen Delivery Method Room Air 07/05/24 07:22 Temperature Pulse Rate 83 Respiratory Rate Blood Pressure 119/58 L Pulse Oximetry Oxygen Delivery Method MDM - Chest Pain Lab Data Attestation: I reviewed the patient's lab results. Lab results narrative: White blood cell count 9800, hemoglobin 14.5, platelets adequate. Basic metabolic panel unremarkable. Liver functions and lipase unremarkable. BNP not elevated. Troponin negative. 07/05/24 01:48 07/05/24 01:48 Labs: Lab Results 07/05/24 07/05/24 07/05/24 Range/Units 01:48 03:55 06:26 WBC 9.8 (4.5-11.0) X10^3/uL RBC 5.32 H (4.0-5.2) X10^6/uL Hgb 14.5 (12.0-16.0) g/dL Hct 42.9 (36-46) % MCV 80.7 (80-100) fL MCH 27.2 (26-34) PG MCHC 33.7 (30-36) % RDW 14.2 (11.6-14.8) % Plt Count 310 (150-400) X10^3/uL Neut % (Auto) 56.3 (50-75) % Lymph % (Auto) 31.2 (25-40) % [place] % (Auto) 9.7 (3-14) % Eos % (Auto) 2.1 (2-4) % Baso % (Auto) 0.7 (0-2) % Neut # (Auto) 5500 (7387-4251) /uL Lymph # (Auto) 3000 (0890-2264) /uL [place] # (Auto) 900 (0-900) /uL Eos # (Auto) 200 (0-450) /uL Baso # (Auto) 100 (0-100) /uL PT 11.7 (9.4-12.5) SECONDS INR 1.0 (0.9-1.3) APTT 35 171 H* D (25.1-36.5) SECONDS Sodium 135 L (137-145) mmol/L Potassium 3.5 (3.4-5.1) mmol/L Chloride 101 (98-107) mmol/L Carbon Dioxide 30 (22-32) mmol/L BUN 25 H (7-17) mg/dL Creatinine 1.18 H (0.52-1.04) mg/dL Estimated GFR 51 L (>60) mL/min BUN/Creatinine Ratio 21.2 (6-22) Glucose 132 H (80-110) mg/dL Calcium 8.9 (8.4-10.2) mg/dL Magnesium 2.2 (1.6-2.3) mg/dL Total Bilirubin 0.4 (0.2-1.3) mg/dL AST 30 (14-36) IU/L ALT 26 (<35) IU/L Alkaline Phosphatase 59 (38-126) U/L Total Creatine Kinase 63 (30-135) U/L Troponin I < 0.012 0.201 H* (0.01-0.034) ng/mL NT-Pro-B Natriuret Pep 139 H (<125) pg/mL Total Protein 7.6 (6.3-8.2) g/dL Albumin 4.0 (3.5-5.0) g/dL Globulin 3.6 (1.7-4.1) g/dL Albumin/Globulin Ratio 1.1 (1.0-2.8) Lipase 109 (23-300) U/L Imaging Data Chest x-ray: Radiologist's Impression: [address] [address] XRay Report Signed Patient: Mavis Salazar MR#: [id number] : 1955 Acct:[id number] Age/Sex: 69 / F Date of Service: 07/05/24 Loc: ED Accession Number: [id number] Procedure: XR chest 1V Ordering Provider: Mo Baugh MD PROCEDURE: XR CHEST 1V INDICATIONS: chest pain TECHNIQUE: One view of the chest was acquired. COMPARISON: [facility], CR, XR CHEST 2V, 09/17/2019, 10:31. FINDINGS: Surgical changes and devices: None. Lungs and pleura: Lungs are clear. No pleural effusions or pneumothorax. Mediastinum: Mediastinal contours appear normal. Heart size is normal. Bones and chest wall: No suspicious bony lesions. Overlying soft tissues appear unremarkable. IMPRESSION: No acute cardiopulmonary abnormality is seen. Approved by: Saniya Yang M.D.,Ph.D. on 07/05/2024 at 2:25 ECG Data Attestation: I personally reviewed and interpreted this ECG as follows: Interpretation: 0147, Normal sinus rhythm rate 89, no obvious ST segment elevation or depression changes. Motion artifact noted multiple leads. VT 164, QRS 96, QTC 454. 0535, normal sinus rhythm with rate of 81, no obvious ST segment elevation or depression changes. VT 162, QRS 96, QTC 418. MDM Narrative Medical decision making narrative: 69-year-old female with no known coronary artery disease but multiple cardiac risk factors including former smoking and hypertension and hyperlipidemia and diabetes, with chest discomfort radiating to left arm at rest, partially improved with antacid treatment. Screening EKG with artifact but no gross obvious STEMI changes. Initial troponin negative. We will repeat interval troponin. Trial of nitroglycerin sublingual for residual chest discomfort, was discontinued as patient then stated she was pain-free. Await interval troponin. Repeat troponin 0.2 elevated. Patient also had repeated episode of left anterior chest discomfort. EKG repeat study unchanged, no obvious STEMI. Given oral aspirin prior, we will add IV heparin bolus/infusion per ACS protocol. Clinical diagnosis now of non ST segment elevation myocardial infarction. We will transfer to labelling machine operator capable facility. Patient agrees. 0500, Case discussed with Susie aggie hospitalist Dr. Gates, who accepts patient for transfer Bed available, transfer by ground ALS Critical Care Time Critical Care Time Critical Care Time: Yes Total Critical Care Time: 35 Attestation: The high probability of a clinically significant, sudden or life threatening deterioration of the [cardiopulmonary] system(s) required my full and direct attention, intervention and personal management. The aggregate critical care time was [35] minutes. This time is in addition to time spent performing reported procedures but includes the following: [x] Data Review and interpretation [x] Patient assessment and monitoring of vital signs [x] Documentation [x] Medication orders and management Discharge Plan Departure Patient Disposition: [facility] Clinical Impression: Non-ST elevation (NSTEMI) myocardial infarction, Chest pain Prescriptions: No Action thiamine HCl (vitamin B1) 50 mg tablet 50 mg PO DAILY cetirizine [Zyrtec] 10 mg tablet 10 mg PO DAILY clobetasol 0.05 % cream 1 applic topical BEDTIME Qty: 60 0RF magnesium oxide 400 mg magnesium capsule 400 mg PO DAILY aspirin 81 mg Tablet,Delayed Release (Dr/Ec) 81 mg PO DAILY Qty: 0 [bioastin] 1 tab PO Q DAY Qty: 0 albuterol sulfate 2.5 mg /3 mL (0.083 %) solution for nebulization 2.5 mg INHALATION Q2H PRN (Reason: shortness of breath or wheezing) Qty: 90 0RF Rx Instructions: 2.5 mg per nebulizer every 2-4 hours as needed for cough, shortness of breath and wheezing potassium chloride 20 mEq tablet extended release 20 meq PO DAILY Qty: 90 3RF fluoxetine 20 mg capsule 20 mg PO DAILY Qty: 90 3RF hydroxychloroquine 200 mg tablet 400 mg PO DAILY Qty: 180 3RF rosuvastatin 10 mg tablet 10 mg PO DAILY Qty: 90 3RF liothyronine [Cytomel] 25 mcg tablet 25 mcg PO DAILY Qty: 90 3RF albuterol sulfate [Ventolin HFA] 90 mcg/actuation HFA aerosol inhaler 1 - 2 puff inhalation Q4-6H PRN (Reason: shortness of breath or wheezing) Qty: 8.5 3RF Rx Instructions: Only dispense brand name Ventolin. furosemide 40 mg tablet See Rx Instructions .ROUTE .COMPLEX Qty: 45 5RF Dose Instruction: TAKE ONE TABLET BY MOUTH EVERY OTHER DAY Rx Instructions: TAKE ONE TABLET BY MOUTH EVERY OTHER DAY valsartan 80 mg tablet 80 mg PO DAILY Qty: 90 3RF ibuprofen 800 mg tablet 800 mg PO TID PRN (Reason: fever or pain) Qty: 90 3RF Rx Instructions: Take w/Food. triamterene-hydrochlorothiazid 37.5-25 mg tablet See Rx Instructions .ROUTE .COMPLEX Qty: 90 3RF Dose Instruction: TAKE ONE TABLET BY MOUTH ONE TIME DAILY Rx Instructions: TAKE ONE TABLET BY MOUTH ONE TIME DAILY Mounjaro 12.5 mg/0.5 mL pen injector 12.5 mg SUBCUT QWEEK Qty: 2 5RF fluticasone propion-salmeterol [Advair Diskus] 500-50 mcg/dose blister with device See Rx Instructions .ROUTE .COMPLEX Qty: 60 5RF Dose Instruction: INHALE ONE PUFF BY MOUTH TWICE DAILY Rx Instructions: INHALE ONE PUFF BY MOUTH TWICE DAILY (DME) Parking Permit... See Rx Instructions .Route .MEDSUPPLY Qty: 1 0RF Rx Instructions: As directed oizglbsjh-gzmjfuqx-cjp-hyalur 2 tab PO DAILY berbezine 1 cap PO DAILY clindamycin HCl 150 mg capsule 150 mg PO Q6H Referrals: Rolando Garza MD [Primary Care Provider] -
[2024-07-05 02:10] LABS: Alanine Aminotransferase 26 IU/L (<35); Albumin Globulin Ratio 1.1 (1.0-2.8); Alkaline Phosphatase 59 U/L (38-126); Aspartate Aminotransferase 30 IU/L (14-36); BUN Creatinine Ratio 21.2 (6-22); Bilirubin Total 0.4 mg/dL (0.2-1.3); Blood Urea Nitrogen 25 mg/dL (7-17); Calcium 8.9 mg/dL (8.4-10.2); Carbon Dioxide 30 mmol/L (22-32); Chloride 101 mmol/L (98-107); Creatine Kinase 63 U/L (30-135); Estimated Glomerular Filt Rate 51 mL/min (>60); Globulin 3.6 g/dL (1.7-4.1); Glucose 132 mg/dL (80-110); HEMOLYSIS < 15 (0-50); Lipase 109 U/L (23-300); Magnesium 2.2 mg/dL (1.6-2.3); Potassium 3.5 mmol/L (3.4-5.1); Sodium 135 mmol/L (137-145); Total Protein 7.6 g/dL (6.3-8.2)
[2024-07-05 02:21] LABS: NT-proBNP (BNP-Adult 18+) 139 pg/mL (<125); Troponin I < 0.012 ng/mL (0.01-0.034)
[2024-07-05 05:23] LABS: Troponin I 0.201 ng/mL (0.01-0.034)
--- NOTE | 2024-07-05 05:35 | EKG_ITS ---
[address] [address] [place] [address] Test Date: 2024-07-05 Pat Name: Mavis Salazar Department: [facility] Room: Gender: Female [employer] Engineer: MANNY : 1955 Requested By: Order Number: [id number] Reading MD: Lowell Geronimo Measurements Intervals [place] Rate: 81 P: 53 NV: 162 QRS: 6 QRSD: 96 T: -50 QT: 360 QTc: 418 Interpretive Statements Normal sinus rhythm Nonspecific ST and T wave abnormality Electronically Signed On 07-05-2024 8:19:11 PST by Lowell Geronimo
[2024-07-05] MEDS: NITROGLYCERIN 0.4 MG SL TAB SL ×2 (05:51→07:22)
--- NOTE | 2024-07-05 05:59 | PC.NURSE ---
Transfer for [facility] had no bed availability. [facility] is boarding several in the ED and unable to take patients at this time but pt was put on a waitlist. [facility] is boarding 20+ patients at all facilities and have no beds available. Susie Su did pt intake at 0554 and waiting media liaison officer back from their idea worker at this time.
[2024-07-05] MEDS: HEPARIN 5,000 UNIT/ML VIAL 5000 UNIT IV (06:09)
[2024-07-05] MEDS: HEPARIN DRIP 25,000 UNIT/500 ML IV.SOLN 29.937 UNIT IV (06:10)
[2024-07-05 06:55] LABS: PTT Partial Thromboplastin Tim 171 SECONDS (25.1-36.5)
--- NOTE | 2024-07-05 07:50 | PC.NURSE ---
Verbal report given to [facility] RN. Patient left with heparin running at the current rate upon discharge.
== END 2024-07-05 07:15 | disposition short-term general hospital (02) ==
PROVIDERS: Emergency Provider Emergency Medicine; PCP Internal Medicine
DX: I21.4 Non-ST elevation (NSTEMI) myocardial infarction (principal); I10 Essential (primary) hypertension; Z87.891 Personal history of nicotine dependence; E78.5 Hyperlipidemia, unspecified; E11.9 Type 2 diabetes mellitus without complications
CPT/HCPCS: 36415; 71045; 80053; 82550; 83690; 83735; 83880; 84484; 85025; 85610; 85730; 93005; 96365; 99284; 99291; J1644

== ENCOUNTER → 2024-08-28 07:34 | Outpatient (CLI) | payer OTHER, SELFPAY ==
[2024-08-28 08:43] LABS: Hematocrit 40.5 % (36-46); Hemoglobin 13.3 g/dL (12.0-16.0); Mean Corpuscular HGB Conc 32.9 % (30-36); Mean Corpuscular Hemoglobin 26.9 PG (26-34); Mean Corpuscular Volume 81.7 fL (80-100); Platelet Count 286 X10^3/uL (150-400); Red Blood Cell Count 4.96 X10^6/uL (4.0-5.2); Red Cell Distribution Width 14.4 % (11.6-14.8); White Blood Cell Count 8.2 X10^3/uL (4.5-11.0)
[2024-08-28 08:56] LABS: Alanine Aminotransferase 62 IU/L (<35); Albumin Globulin Ratio 1.4 (1.0-2.8); Alkaline Phosphatase 65 U/L (38-126); Aspartate Aminotransferase 47 IU/L (14-36); BUN Creatinine Ratio 22.2 (6-22); Bilirubin Total 0.5 mg/dL (0.2-1.3); Blood Urea Nitrogen 22 mg/dL (7-17); Carbon Dioxide 27 mmol/L (22-32); Chloride 101 mmol/L (98-107); Cholesterol 109 mg/dL (140-199); Estimated Glomerular Filt Rate > 60 mL/min (>60); Globulin 2.8 g/dL (1.7-4.1); Glucose 86 mg/dL (80-110); HDL Cholesterol 61 mg/dL (40-60); HEMOLYSIS < 15 (0-50); LDL Cholesterol Calculated 34 mg/dL (<100); Potassium 4.5 mmol/L (3.4-5.1); Sodium 136 mmol/L (137-145); Total Protein 6.8 g/dL (6.3-8.2); Triglycerides 70 mg/dL (35-150)
[2024-08-31 04:36] LABS: Lipoprotein (a) <8.4 nmol/L (<75.0)
== END ==
LOC: LAB 07:35
PROVIDERS: PCP Internal Medicine; Referring Provider Internal Medicine; Visit Provider Internal Medicine
DX: E78.5 Hyperlipidemia, unspecified (principal)
CPT/HCPCS: 36415; 80053; 80061; 83695; 85027

== ENCOUNTER 2024-10-24 14:15 | Outpatient (RCR) | payer OTHER, SELFPAY | END 2024-10-24 16:15 | LOC: CAR 14:15 | PROVIDERS: PCP Internal Medicine; Referring Provider Internal Medicine Cardiovascular Disease; Visit Provider Internal Medicine Cardiovascular Disease | DX: I21.3 ST elevation (STEMI) myocardial infarction of unspecified site (principal); Z95.5 Presence of coronary angioplasty implant and graft | CPT/HCPCS: 93798 ==